=== PATIENT | male | born 2000 | race Caucasian/White ===

== ENCOUNTER 2025-11-19 16:12 | Observation (INO) ==
--- NOTE | 2025-11-19 16:19 | Emergency Department Note ---
History of Present Illness General Chief complaint: Abdominal Pain Stated complaint: ABD PAIN, VOMITING Time Seen by Provider: 11/19/25 16:17 History of Present Illness This is a 25-year-old male that presents to the emergency department via private vehicle with complaints of "abdominal pain, vomiting". Patient family notes that there has been vomiting x 3 days with abdominal pain mostly in the right side. Reportedly there has been decreased urine output and some constipation. Since yesterday about 10-15 episodes of emesis. Patient unable to tolerate any oral food or fluids. Patient felt little bit better today but then pain worsened in the right lower quadrant. Current pain 07/11. No trauma. No injury. Patient notes he is otherwise healthy and denies any pertinent past medical history, surgeries or allergies. No chest pain or shortness of breath. Home Medications Medication Instructions Recorded Confirmed Type No Known Home Medications 11/19/25 11/19/25 History Allergies Allergy/AdvReac Type Severity Reaction Status Date / Time No Known Allergies Allergy Unknown Verified 02/05/04 10:21 Past Med/Surg History Problem List (Updated 11/19/25 @ 20:42 by Patrice East PA-C) Acute appendicitis (Acute) Emesis (Acute) Right sided abdominal pain (Acute) Social History Smoking Status: Never smoker Preferred Language: Bruneian Feels Safe at Home: Yes Review of Systems A total of 10 systems reviewed and were otherwise negative Physical Exam Vital Signs Vital Signs - 24 hr 11/19/25 16:15 11/19/25 19:18 11/19/25 21:54 Temperature 36.8 C Temperature Source Temporal Artery Scan Pulse Rate 83 70 Pulse Rate [Finger] 89 Respiratory Rate 18 18 Respiratory Effort / Characteristics Non-Labored Spontaneous Non-Labored Spontaneous Respiratory Depth Normal Normal Respiratory Pattern Regular Blood Pressure 122/91 Blood Pressure [Right Arm] 114/69 Blood Pressure Mean 101 Blood Pressure Mean [Right Arm] 84 Pulse Oximetry 96 97 Oxygen Delivery Method Room Air Room Air Sepsis Recent Fever Within 48 Hours No Sepsis New/Unexplained Change in Mental Status No Sepsis Action Taken by Nursing No Action Required 11/19/25 22:29 Temperature Temperature Source Pulse Rate Pulse Rate [Finger] Respiratory Rate Respiratory Effort / Characteristics Respiratory Depth Respiratory Pattern Blood Pressure Blood Pressure [Right Arm] Blood Pressure Mean Blood Pressure Mean [Right Arm] Pulse Oximetry Oxygen Delivery Method Room Air Sepsis Recent Fever Within 48 Hours Sepsis New/Unexplained Change in Mental Status Sepsis Action Taken by Nursing VITAL SIGNS - Vital signs and nursing notes were reviewed. Stable and afebrile. GENERAL -25-year-old male appearing his stated age who is in no acute distress. Communicates well with provider and answers questions appropriately. SKIN - Without rashes. No meningeal or petechial rash. HEAD - NC/AT. EYES - PERRL with EOMI bilaterally. Sclera anicteric. LUNGS - Chest wall symmetric without accessory muscle use, intercostals retractions, or central cyanosis. Normal vesicular breath sounds CTA B/L. No wheezes, rales, or rhonchi appreciated. CARDIAC - RRR ABDOMEN - Abdominal contour normal without pulsations or visible masses. BS normoactive all four quadrants. RLQ ttp noted. No palpable masses, hepatosplenomegaly, or ascites noted. EXTREMITIES - No clubbing or peripheral cyanosis. No pretibial edema present. +5/5 strength noted in UE/LE bilaterally. NEUROLOGIC - Cranial nerves II through XII grossly intact. PSYCH -alert, oriented and pleasant on exam Course Administered Medications Discontinued Medications Sodium Chloride (Nss) 1,000 mls @ 500 mls/hr IV .Q2H ONE Stop: 11/19/25 18:23 Last Infusion: 11/19/25 18:50 Dose: Infused Documented By: Admin: 11/19/25 16:35 Dose: 500 mls/hr Documented By: SHY Piperacillin Sod/Tazobactam Sod (Zosyn) 4.5 gm in 100 mls @ 200 mls/hr IV NOW ONE; Protocol Stop: 11/19/25 21:02 Last Infusion: 11/19/25 21:20 Dose: Infused Documented By: Admin: 11/19/25 20:50 Dose: 200 mls/hr Documented By: ELIZABETH Ioversol (Optiray 320 100ml) 93 ml IV ONCE ONE Stop: 11/19/25 19:03 Last Admin: 11/19/25 19:02 Dose: 93 ml Documented By: SIL Ketorolac Tromethamine (Ketorolac Tromethamine 15 Mg/Ml Vial) 10 mg IV NOW ONE Stop: 11/19/25 16:25 Last Admin: 11/19/25 16:35 Dose: 10 mg Documented By: SHY Morphine Sulfate (Morphine Sulfate 2 Mg/Ml Carp) 2 mg IV NOW STA Stop: 11/19/25 16:25 Last Admin: 11/19/25 16:35 Dose: 2 mg Documented By: SHY Ondansetron HCl (Ondansetron Inj 2 Mg/Ml 2 Ml Vial) 4 mg IV NOW STA Stop: 11/19/25 16:25 Last Admin: 11/19/25 16:35 Dose: 4 mg Documented By: SHY Medical Decision Making Laboratory Data 11/19/25 16:42 11/19/25 16:42 Lab Results 11/19/25 11/19/25 Range/Units 16:42 Unknown WBC 13.42 H (4.8-10.8) K/ul RBC 5.15 (4.70-6.10) M/uL Hgb 15.2 (14.0-18.0) g/dL Hct 42.5 (42.0-52.0) % MCV 82.5 (80.0-100.0) fL MCH 29.5 (25.0-34.0) pg MCHC 35.8 (32.0-36.0) g/dL RDW Std Deviation 38.7 (36.4-46.3) fL RDW Coeff of Joss 12.9 (11.5-14.5) % Plt Count 222 (130-400) K/uL MPV 10.9 (9.4-12.4) fL Immature Gran % (Auto) 0.4 % Neut % (Auto) 83.8 % Lymph % (Auto) 8.5 % [place] % (Auto) 7.0 % Eos % (Auto) 0.2 % Baso % (Auto) 0.1 % Neut # (Auto) 11.23 H (1.40-6.50) K/uL Lymph # (Auto) 1.14 L (1.20-3.40) K/uL [place] # (Auto) 0.94 H (0.11-0.59) K/uL Eos # (Auto) 0.03 (0.00-0.50) K/uL Baso # (Auto) 0.02 (0.00-0.20) K/uL Immature Gran # (Auto) 0.06 (0.01-0.20) K/uL Sodium 138 (136-145) mmol/L Potassium 3.3 L (3.5-5.1) mmol/L Chloride 99 (98-107) mmol/L Carbon Dioxide 30 (21-32) mmol/L Anion Gap 9 (3-11) BUN 11 (6-23) mg/dl Creatinine 0.94 (0.6-1.4) mg/dl Est Cr Clr Drug Dosing Not Reportable eGFR 116.82 BUN/Creatinine Ratio 11.7 (10-20) Glucose 136 H (70-99(Fasting)) mg/dl Calcium 10.0 (8.6-10.3) mg/dl Total Bilirubin 0.7 (0.2-1.0) mg/dl AST 15 (13-39) U/L ALT 11 (7-52) U/L Alkaline Phosphatase 58 (34-104) U/L Total Protein 7.8 (6.0-8.3) gm/dl Albumin 4.9 (3.4-5.0) gm/dl Globulin 2.9 (2.5-4.0) gm/dl Albumin/Globulin Ratio 1.7 (0.9-2) Lipase 6 L (11-82) U/L Urine Color Yellow Urine Appearance Clear (Clear) Urine pH 6.0 (4.5-7.5) Ur Specific [place] 1.009 (1.000-1.030) Urine Protein Negative (Negative) Urine Glucose (UA) Trace H (Negative) Urine Ketones Trace H (Negative) Urine Blood Negative (Negative) Urine Nitrite Negative (Negative) Urine Bilirubin Negative (Negative) Urine Urobilinogen Negative (Negative) Ur Leukocyte Esterase Negative (Negative) Urine Comment Imaging Data Radiologist's Impression: Abdomen/Pelvis CT 11/19/25 16:24 CR Exam(s): CT ABDOMEN + PELVIS With Contrast IV Amt: 93 ml optiray 320 EXAM: CT Abdomen and Pelvis With Intravenous Contrast CLINICAL HISTORY: Reason for exam: R sided abd pain, vomiting. TECHNIQUE: Axial computed tomography images of the abdomen and pelvis with intravenous contrast. CTDI is 7.47 mGy and DLP is 349.35 mGy-cm. Automated exposure control was utilized for the study. A dose lowering technique was utilized adhering to the principles of ALARA. CONTRAST: Patient received 93 ml optiray 320 of IV contrast COMPARISON: None FINDINGS: Lung bases: Unremarkable. No mass. No consolidation. ABDOMEN: Liver: Unremarkable. No mass. Gallbladder and bile ducts: Unremarkable. No calcified stones. No ductal dilation. Pancreas: Unremarkable. No mass. No ductal dilation. Spleen: Unremarkable. No splenomegaly. Adrenals: Unremarkable. No mass. Kidneys and ureters: Unremarkable. No hydronephrosis or obstructing ureteral stone. Stomach and bowel: Fluid and gas filled small bowel loops may represent enteritis in the appropriate clinical setting. No obstruction. PELVIS: Appendix: Mild enlargement and inflammatory change of the appendix measuring 9-10 mm in diameter. Findings are concerning for acute appendicitis. Bladder: Mild prominence of the bladder wall is likely secondary to underdistention. Reproductive: Unremarkable as visualized. ABDOMEN and PELVIS: Intraperitoneal space: Small amount of fluid in the pelvis. No free air. Bones/joints: Probable small bone islands in the pelvic bones. No acute fracture. No dislocation. Soft tissues: Unremarkable. Vasculature: Unremarkable. No abdominal aortic aneurysm. Lymph nodes: Unremarkable. No enlarged lymph nodes. IMPRESSION: 1. Mild enlargement and inflammatory change of the appendix measuring 9- 10 mm in diameter. Findings are concerning for acute appendicitis. 2. Fluid and gas filled small bowel loops may represent enteritis in the appropriate clinical setting. 3. Small amount of fluid in the pelvis. Communications: Call Doctor Appendicitis Electronically signed by: Ashley Roberson M.D. 11/19/25 20:26 PM MDM Narrative Patient was seen and evaluated as above in room D06. Review was performed of nursing notes and vital signs. After obtaining a thorough history and physical examination the above work up was performed. Patient presents to us today for evaluation of right sided abdominal pain with vomiting x 3 days. He is tender in the right lower quadrant on assessment. Vital signs are stable. Options of care were discussed with the patient. IV access was established. Labs were drawn. A CT scan of the abdomen/pelvis with IV and oral contrast was ordered. While here he was medicated with IV Toradol for pain, IV morphine for pain, Zofran for nausea and fluids to rehydrate volume loss through vomiting. There is leukocytosis 13.42. No anemia. There is mild hypokalemia 3.3. There is no evidence of kidney or liver failure. There is hyperglycemia 136. There is no elevation of lipase. The patient was able to tolerate the oral prep for CT without issue. There was no vomiting. CT scan reveals acute appendicitis. I ordered IV antibiotics. received a phone call from the radiologist interpreting the CT scan abdomen/pelvis alerting me of the concern for acute appendicitis. 2035: I spoke with LIYAH Alarcon from general surgery. Plan at this time is observation with likely operative intervention tomorrow. She will come to evaluate the patient. Please refer to further documentation regarding his stay. GCS: 15 In the evaluation and treatment of this patient the following differential diagnoses were entertained: Acute appendicitis, acute cholecystitis, UTI, pyelonephritis, strain, sprain, bowel obstruction, among others. Impression & Plan Acute appendicitis, Right sided abdominal pain, Emesis Discharge Plan Visit Data Chief Complaint: Abdominal Pain Stated Complaint: ABD PAIN, VOMITING ED Provider: Shravan Child ED Midlevel Provider: Patrice East Discharge Problem: Acute appendicitis, Right sided abdominal pain, Emesis Patient Disposition: Admitted As Inpatient Condition: Good Discharge Instructions Interventions: ED Discharge Assessment Last Done: 11/19/25 22:29 Forms Stand Alone Forms: My [facility] [employer] Prescriptions Prescriptions: No Action No Known Home Medications Referrals Referrals: PCP,NO [Primary Care Provider] -
[2025-11-19] MEDS: MoRPHine SULFATE 2 MG/ML CARP IV STA (16:35)
[2025-11-19] MEDS: SODIUM CHLORIDE 0.9% 1,000 ML IV ONE (16:35)
[2025-11-19] MEDS: KETOROLAC TROMETHAMINE 15 MG/ML VIAL IV ONE (16:35)
[2025-11-19] MEDS: ONDANSETRON INJ 2 MG/ML 2 ML VIAL IV STA (16:35)
[2025-11-19 17:06] LABS: Hematocrit (blood only) 42.5 % (42.0-52.0); Hemoglobin 15.2 g/dL (14.0-18.0); Immature Granulocytes # (auto) 0.06 K/uL (0.01-0.20); Immature Granulocytes % (auto) 0.4 %; Mean Corpuscular Hemoglobin 29.5 pg (25.0-34.0); Mean Corpuscular Volume 82.5 fL (80.0-100.0); Platelet Count 222 K/uL (130-400); RDW Standard Deviation 38.7 fL (36.4-46.3); Red Blood Count 5.15 M/uL (4.70-6.10); White Blood Count 13.42 K/ul (4.8-10.8)
[2025-11-19 17:24] LABS: Alanine Aminotransferase 11 U/L (7-52); Albumin Globulin Ratio 1.7 (0.9-2); Albumin Level 4.9 gm/dl (3.4-5.0); Alkaline Phosphatase 58 U/L (34-104); Anion Gap 9 (3-11); Bilirubin,Total 0.7 mg/dl (0.2-1.0); Blood Urea Nitrogen 11 mg/dl (6-23); Calcium 10.0 mg/dl (8.6-10.3); Carbon Dioxide 30 mmol/L (21-32); Chloride 99 mmol/L (98-107); Globulin 2.9 gm/dl (2.5-4.0); Glucose 136 mg/dl (70-99(Fasting)); Lipase 6 U/L (11-82); Potassium 3.3 mmol/L (3.5-5.1); Sodium 138 mmol/L (136-145); Total Protein 7.8 gm/dl (6.0-8.3)
[2025-11-19] MEDS: OPTIRAY 320 100ml IV ONE (19:02)
[2025-11-19 19:29] LABS: Appearance Urine Clear (Clear); Glucose Urine UA Trace (Negative)
--- NOTE | 2025-11-19 20:27 | CT Scan Report ---
Exam(s): CT ABDOMEN + PELVIS With Contrast IV Amt: 93 ml optiray 320 EXAM: CT Abdomen and Pelvis With Intravenous Contrast CLINICAL HISTORY: Reason for exam: R sided abd pain, vomiting. TECHNIQUE: Axial computed tomography images of the abdomen and pelvis with intravenous contrast. CTDI is 7.47 mGy and DLP is 349.35 mGy-cm. Automated exposure control was utilized for the study. A dose lowering technique was utilized adhering to the principles of ALARA. CONTRAST: Patient received 93 ml optiray 320 of IV contrast COMPARISON: None FINDINGS: Lung bases: Unremarkable. No mass. No consolidation. ABDOMEN: Liver: Unremarkable. No mass. Gallbladder and bile ducts: Unremarkable. No calcified stones. No ductal dilation. Pancreas: Unremarkable. No mass. No ductal dilation. Spleen: Unremarkable. No splenomegaly. Adrenals: Unremarkable. No mass. Kidneys and ureters: Unremarkable. No hydronephrosis or obstructing ureteral stone. Stomach and bowel: Fluid and gas filled small bowel loops may represent enteritis in the appropriate clinical setting. No obstruction. PELVIS: Appendix: Mild enlargement and inflammatory change of the appendix measuring 9-10 mm in diameter. Findings are concerning for acute appendicitis. Bladder: Mild prominence of the bladder wall is likely secondary to underdistention. Reproductive: Unremarkable as visualized. ABDOMEN and PELVIS: Intraperitoneal space: Small amount of fluid in the pelvis. No free air. Bones/joints: Probable small bone islands in the pelvic bones. No acute fracture. No dislocation. Soft tissues: Unremarkable. Vasculature: Unremarkable. No abdominal aortic aneurysm. Lymph nodes: Unremarkable. No enlarged lymph nodes. IMPRESSION: 1. Mild enlargement and inflammatory change of the appendix measuring 9- 10 mm in diameter. Findings are concerning for acute appendicitis. 2. Fluid and gas filled small bowel loops may represent enteritis in the appropriate clinical setting. 3. Small amount of fluid in the pelvis. Communications: Call Doctor Appendicitis Electronically signed by: Ashley Roberson M.D. 11/19/25 20:26 PM
[2025-11-19] MEDS: PIPERACILLIN/TAZOBACTAM 4.5 GM/100 ML BAG IV ONE (20:50)
--- NOTE | 2025-11-19 21:17 | History & Physical Report ---
Date of Service November 19, 2025 Assessment & Plan (1) Acute appendicitis: Plan: Patient is a 25-year-old male who presented to the emergency department with complaints of nausea and vomiting for the last 3 days and acute onset of right lower quadrant abdominal pain that started yesterday. Upon workup he was found to have a leukocytosis of 13.[address] findings concerning for acute appendicitis. Patient was seen and evaluated this evening at bedside, he is resting comfortably in bed, vital signs are stable, and he is nontoxic- appearing. Patient does have clinical exam findings consistent with acute appendicitis. At this time patient will be admitted under observation to the general surgery service. -Patient may have sips and chips for now, n.p.o. at midnight, and IV fluid hydration -IV Zosyn has been initiated in the emergency department, continue antibiotic coverage -Pain control and antiemetics as needed - Discussed treatment options with the patient and tentatively planning for appendectomy tomorrow morning with Dr. Kendrick. History of Present Illness Chief Complaint: Abdominal pain Primary Care Provider: NO PCP The patient is a 25-year-old male presented to the emergency department with complaints of abdominal pain, nausea and vomiting. The patient states that over the last 3 days he has been vomiting and originally thought it was due to a GI bug, however yesterday he started with abdominal pain in his mid abdomen that has progressed into his right lower quadrant. Patient states that the pain has not gotten any better and he continued with episodes of vomiting today which prompted him to come to the emergency department for further evaluation. Upon workup the patient was found to have a leukocytosis of 13.[address] imaging concerning for acute appendicitis. At that time general surgery was consulted for further evaluation. Patient was seen and evaluated this evening in the emergency department, he is resting comfortably in bed, vital signs are stable, and he is nontoxic- appearing. Patient states that his nausea and vomiting has gotten better since receiving medication in the emergency department. However, he does have tenderness to palpation on exam in the right lower quadrant consistent with acute appendicitis. Patient denies any past medical or surgical history. Allergies Allergy/AdvReac Type Severity Reaction Status Date / Time No Known Allergies Allergy Unknown Verified 02/05/04 10:21 Home Medications Medication Instructions Recorded Confirmed Type No Known Home Medications 11/19/25 11/19/25 History Past Med/Surg History Problem List (Updated 11/19/25 @ 20:42 by Patrice East PA-C) Acute appendicitis (Acute) Emesis (Acute) Right sided abdominal pain (Acute) Social History Smoking Status: Never smoker Preferred Language: Russian Feels Safe at Home: Yes Review of Systems Constitutional: no fever, no chills and no weakness Respiratory: no cough, no chest congestion and no dyspnea Cardiovascular: no chest pain, no palpitations and no syncope Gastrointestinal: + abdominal pain, + nausea and + vomitin g Genitourinary: no difficulty urinating or no hematuria Physical Exam Constitutional: WD/WN, vitals as above Respiratory: normal respiratory effort, lungs clear to auscultation Cardiovascular: RRR, no murmur, no edema Gastrointestinal (Abdomen): Abdomen soft, nondistended, +TTP in the RLQ with + McBurney's point. Skin: no rashes, warm and dry Results & Data Results & Data Vital Signs (Past 12 Hours) Vital Signs Temp Pulse Pulse Resp BP BP Pulse Ox 11/19/25 19:18 89 18 114/69 97 11/19/25 16:15 36.8 C 83 18 122/91 96 O2 Del Method 11/19/25 19:18 Room Air 11/19/25 16:15 Room Air Diagnostic Findings Exam(s): CT ABDOMEN + PELVIS With Contrast IV Amt: 93 ml optiray 320 EXAM: CT Abdomen and Pelvis With Intravenous Contrast CLINICAL HISTORY: Reason for exam: R sided abd pain, vomiting. TECHNIQUE: Axial computed tomography images of the abdomen and pelvis with intravenous contrast. CTDI is 7.47 mGy and DLP is 349.35 mGy-cm. Automated exposure control was utilized for the study. A dose lowering technique was utilized adhering to the principles of ALARA. CONTRAST: Patient received 93 ml optiray 320 of IV contrast COMPARISON: None FINDINGS: Lung bases: Unremarkable. No mass. No consolidation. ABDOMEN: Liver: Unremarkable. No mass. Gallbladder and bile ducts: Unremarkable. No calcified stones. No ductal dilation. Pancreas: Unremarkable. No mass. No ductal dilation. Spleen: Unremarkable. No splenomegaly. Adrenals: Unremarkable. No mass. Kidneys and ureters: Unremarkable. No hydronephrosis or obstructing ureteral stone. Stomach and bowel: Fluid and gas filled small bowel loops may represent enteritis in the appropriate clinical setting. No obstruction. PELVIS: Appendix: Mild enlargement and inflammatory change of the appendix measuring 9-10 mm in diameter. Findings are concerning for acute appendicitis. Bladder: Mild prominence of the bladder wall is likely secondary to underdistention. Reproductive: Unremarkable as visualized. ABDOMEN and PELVIS: Intraperitoneal space: Small amount of fluid in the pelvis. No free air. Bones/joints: Probable small bone islands in the pelvic bones. No acute fracture. No dislocation. Soft tissues: Unremarkable. Vasculature: Unremarkable. No abdominal aortic aneurysm. Lymph nodes: Unremarkable. No enlarged lymph nodes. IMPRESSION: 1. Mild enlargement and inflammatory change of the appendix measuring 9- 10 mm in diameter. Findings are concerning for acute appendicitis. 2. Fluid and gas filled small bowel loops may represent enteritis in the appropriate clinical setting. 3. Small amount of fluid in the pelvis. Code Status & VTE Plan VTE Prophylaxis Plan VTE Prophylaxis will be ordered: Yes PG Care Time/CCT Total # of Minutes Spent Total Time Spent with Patient: Total time spent is greater than 50% in coordination of care (as documented) at patient's floor/unit and/or counseling patient: [place] [address] INT INP/OBS CARE 1/40MIN Patient Type New History Problem Focused Exam Problem Focused Medical Decision Making Straight Forward Diagnoses Acute appendicitis K35.80
[2025-11-19] MEDS ORDERED: HYDROmorphone INJ 0.5 MG/0.5 ML SYR IV PRN ×2 (22:42)
[2025-11-19] MEDS ORDERED: ONDANSETRON INJ 2 MG/ML 2 ML VIAL IV PRN (22:42)
[2025-11-19] MEDS: ACETAMINOPHEN 1,000 MG/100 ML VIAL IV SCH (23:03)
[2025-11-19] MEDS: SODIUM CHLORIDE 0.9% 1,000 ML IV SCH (23:03)
[2025-11-19] MEDS ORDERED: INFLUENZA VACC TS2025-26(6m+)/PF (IIV3) 0.5mL Syr IM ONE (23:39)
[2025-11-20] MEDS: PIPERACILLIN/TAZOBACTAM 4.5 GM/100 ML BAG IV SCH (02:30)
[2025-11-20 06:09] LABS: Hematocrit (blood only) 35.7 % (42.0-52.0); Hemoglobin 12.7 g/dL (14.0-18.0); Immature Granulocytes # (auto) 0.07 K/uL (0.01-0.20); Immature Granulocytes % (auto) 0.5 %; Mean Corpuscular Hemoglobin 29.8 pg (25.0-34.0); Mean Corpuscular Volume 83.8 fL (80.0-100.0); Platelet Count 179 K/uL (130-400); RDW Standard Deviation 39.5 fL (36.4-46.3); Red Blood Count 4.26 M/uL (4.70-6.10); White Blood Count 13.11 K/ul (4.8-10.8)
[2025-11-20 06:26] LABS: Anion Gap 6.0 (3-11); Blood Urea Nitrogen 7.0 mg/dl (6-23); Calcium 9.0 mg/dl (8.6-10.3); Carbon Dioxide 30.0 mmol/L (21-32); Chloride 103.0 mmol/L (98-107); Creatinine Clr Calc Pharmacy 91.7 ml/min; Glucose 108.0 mg/dl (70-99(Fasting)); Potassium 3.6 mmol/L (3.5-5.1); Sodium 139.0 mmol/L (136-145)
[2025-11-20] MEDS ORDERED: DEXAMETHASONE SOD INJ 4 MG/ML VIAL ONE (06:55)
[2025-11-20] MEDS ORDERED: PROPOFOL IV EMULSION 10 MG/ML 20 ML VIAL IV ONE (06:55)
[2025-11-20] MEDS ORDERED: LIDOCAINE 2% 2 ML VIAL/AMP(20MG/ML) INFIL ONE (06:55)
[2025-11-20] MEDS ORDERED: ROCURONIUM BROMIDE 10 MG/ML 5 ML VIAL IV ONE (06:55)
[2025-11-20] MEDS ORDERED: MIDAZOLAM HCL 1 MG/ML 2ML VIAL ONE (06:55)
[2025-11-20] MEDS ORDERED: ONDANSETRON INJ 2 MG/ML 2 ML VIAL ONE (06:55)
--- NOTE | 2025-11-20 08:11 | Anesthesiology Consultation ---
Date of Service November 20, 2025 Assessment & Plan (1) Encounter for pre-operative examination: Chart Review Chart Review: Acceptable Risk for Surgery History Surgery Operation Date: 11/20/25 08:30 Proposed Procedures p Laparoscopic Appendectomy - Abhijit Kendrick DO Height/Weight Height: 5 ft 10 in Weight: 53.6 kg Allergies Allergy/AdvReac Type Severity Reaction Status Date / Time No Known Allergies Allergy Unknown Verified 02/05/04 10:21 Medications Home Medications Medication Instructions Recorded Confirmed Last Taken No Known Home Medications 11/19/25 11/19/25 Unknown Active Medications Generic Name Dose Route Start Last Admin Trade Name Freq PRN Reason Stop Dose Admin Piperacillin Sod/Tazobactam Sod 4.5 gm in 100 mls @ 25 mls/hr 11/20/25 02:00 11/20/25 06:34 Zosyn IV 11/24/25 01:59 Infused Q8H YANIRA Infusion Protocol Sodium Chloride 1,000 mls @ 75 mls/hr 11/19/25 22:42 11/19/25 23:03 Nss IV 11/22/25 22:41 75 mls/hr .[id number] YANIRA Administration Acetaminophen 1,000 mg in 100 mls @ 400 mls/hr 11/19/25 23:00 11/20/25 07:16 Ofirmev IV 11/22/25 22:59 Infused Q8H YANIRA Infusion NPO Date Last Intake of Fluids: 11/19/25 Time Last Intake of Fluids: 23:00 Date Last Intake of Solids: 11/19/25 Time Last Intake of Solids: 11:00 Past Medical History Medical History (Updated 11/20/25 @ 08:11 by Ran Tao MD) No pertinent past medical history Past Surgical History Surgical History (Updated 11/20/25 @ 08:11 by Ran Tao MD) Hx of wisdom tooth extraction Social History Smoking Status: Never smoker Do You Dip or Chew Tobacco: No Hx Alcohol Use: Yes Alcohol type: hard liquor alcohol intake frequency: holidays/special occasions only Hx Substance Use: Yes substance use type: former substance user and marijuana Last Used Substance Other:: A week ago Physical Exam Vital Signs Last Vital Signs Temp 37.5 C 11/20/25 07:46 Pulse 76 11/20/25 07:46 Resp 16 11/20/25 07:46 BP 106/71 11/20/25 07:46 Pulse Ox 98 11/20/25 07:46 O2 Del Method Room Air 11/20/25 07:46 Testing Laboratory Results 11/20/25 05:28 11/20/25 05:28 Urine Color Yellow 11/19/25 Unknown Urine Appearance Clear (Clear) 11/19/25 Unknown Urine pH 6.0 (4.5-7.5) 11/19/25 Unknown Ur Specific [place] 1.009 (1.000-1.030) 11/19/25 Unknown Urine Protein Negative (Negative) 11/19/25 Unknown Urine Glucose (UA) Trace (Negative) H 11/19/25 Unknown Urine Ketones Trace (Negative) H 11/19/25 Unknown Urine Nitrite Negative (Negative) 11/19/25 Unknown Ur Leukocyte Esterase Negative (Negative) 11/19/25 Unknown
[2025-11-20] MEDS ORDERED: KETOROLAC 30 MG/ML VIAL IV PRN (08:12)
[2025-11-20] MEDS ORDERED: PROMETHAZINE HCL 6.25 MG in SODIUM CHLORIDE 0.9% 50 ML IV PRN (08:12)
[2025-11-20] MEDS ORDERED: ATROPINE SULFATE 0.1 MG/ML 10ML SYR IV PRN (08:12)
--- NOTE | 2025-11-20 08:17 | Surgery Progress Note ---
Date of Service November 20, 2025 Assessment & Plan (1) Acute appendicitis: Plan: His CT images and results were personally viewed and interpreted by myself He does have a dilated appendix with some stranding consistent with acute appendicitis Will plan on a laparoscopic appendectomy, possible open Consent was obtained, risks discussed including bleeding, infection, abscess Admission and Anticipated Discharge Date Admission Date: November 19, 2025 Subjective Patient seen and examined. Still with some abdominal pain. Afebrile. No nausea or vomiting. Review of Systems Constitutional: no fever and no chills Respiratory: no cough and no dyspnea Cardiovascular: no chest pain and no dyspnea on exertion Gastrointestinal: + abdominal pain; no nausea and no vomit ing Physical Exam Constitutional: WD/WN, vitals as above Eyes: PERRL, conjunctivae normal, anicteric sclerae Respiratory: normal respiratory effort, lungs clear to auscultation Cardiovascular: RRR, no murmur, no edema Gastrointestinal (Abdomen): Inspection/Auscultation: abdomen normal to inspection; abdomen not distended Percussion/Palpation: + abdomen tender (Right lower quadrant) and abdomen soft; no guarding Skin: no rashes, warm and dry Psychiatric: A+Ox3, euthymic affect Results & Data Vital Signs (Past 12 Hours) Vital Signs Temp Pulse Pulse Resp BP Pulse Ox O2 Del Method 11/20/25 07:46 37.5 C 76 16 106/71 98 Room Air 11/19/25 22:50 Room Air 11/19/25 22:48 36.7 C 74 18 109/70 98 Room Air 11/19/25 22:29 Room Air 11/19/25 21:54 70 PG Care Time/CCT Total # of Minutes Spent Total Time Spent with Patient: Total time spent is greater than 50% in coordination of care (as documented) at patient's floor/unit and/or counseling patient: Coding Level of Care Code 89231 SUB INP/OBS CARE 2/35MIN Diagnoses Acute appendicitis K35.80
[2025-11-20] MEDS: BUPIVACAINE/EPINEPHRINE 0.25% 1:200,000 30 ML VIAL ONE (09:12)
[2025-11-20] MEDS ORDERED: SUGAMMADEX SODIUM 200 MG/2 ML VIAL IV ONE (09:13)
[2025-11-20] MEDS ORDERED: KETOROLAC 30 MG/ML VIAL ONE (09:15)
--- NOTE | 2025-11-20 09:17 | Post Operative Brief Note ---
PG Immediate Post Op with CF Date of Surgery November 20, 2025 Pre & Post Diagnosis Operation Date: 11/20/25 08:30 Pre-Op Diagnosis: Acute appendicitis Post-Op Diagnosis: Acute appendicitis without perforation, with abscess I identified the patient and participated in the time-out.: Yes Procedure Operation Date: 11/20/25 08:30 Actual Procedures p Laparoscopic Appendectomy(Not Applicable) - Abhijit Kendrick DO Surgeon Abhijit Kendrick DO Pilot Boat Operator Tennille Paz PA-C Estimated Blood Loss 5 Findings See Below Inflamed dilated appendix without perforation with mesenteric abscess Specimens Specimen Description: A) Appendix Drains Carlin Catheter Anesthesia Type General Complications none Disposition Disposition: Recovery Room
--- NOTE | 2025-11-20 09:19 | Operative Report ---
PG Post Operative Report Pre & Post Diagnosis Operation Date: 11/20/25 08:30 Pre-Op Diagnosis: Acute appendicitis Post-Op Diagnosis: Acute appendicitis without perforation, with abscess I identified the patient and participated in the time-out.: Yes Procedure Operation Date: 11/20/25 08:30 Actual Procedures p Laparoscopic Appendectomy(Not Applicable) - Abhijit Kendrick DO Surgeon Abhijit Kendrick DO Motorsports Technician Tennille Paz PA-C Estimated Blood Loss 5 Findings See Below Inflamed dilated appendix without perforation with mesenteric abscess Specimens Appendix to pathology Drains None Anesthesia Type General Complications none Disposition Disposition: Recovery Room Indications 25-year-old male with acute appendicitis Description of Procedure The patient was brought to the OR and placed in the supine position and SCD's placed. At this time he underwent general endotracheal anesthesia without incid ent. At this time a Carlin catheter was placed under sterile conditions. His abdomen was prepped and draped in the usual sterile fashion. He was given appropriate pre-operative antibiotics. A timeout was called, the procedure was verified as Laparoscopic appendectomy, possible open. Surgical, anesthesia and nursing teams agreed and the procedure was begun. After injection of 0.25% Marcaine with epinephrine, a supraumbilical incision was made using a #11 blade scalpel and carried down to the fascia with a hemostat. The abdomen was then elevated with towel clamps and entered using the Veress needle confirming position using the saline drop test. Pneumoperitoneum was established and 5mm trocar was placed. Laparoscope was introduced. No injury was seen from our entrance to the abdomen. At this time a 5mm suprapubic port and 12mm LLQ port were placed under direct visualization. The patient was placed in Trendelenburg and rotated to the left. At this time the appendix was visualized and the tip was freed and elevated toward the abdominal wall. The appendix appeared inflamed, dilated and edematous. A window was created in the mesoappendix at the base of the appendix. A 45mm purple load stapler was then fired across the base of the appendix which appeared healthy. There was an appendiceal abscess and small amount of purulent fluid encountered within the mesoappendix. The mesoappendix was then taken using Harmonic device. The appendix was then placed in an Endocatch bag and removed through the LLQ port site. Staple line was inspected and was intact. Hemostasis was complete. A small amount of purulent fluid was suctioned out of the RLQ and pelvis. At this point the omentum was placed over the staple line. The 12 mm port was then closed at the fascial level using a 0 Vicryl suture using the suture passer. All ports were removed under direct visualization and no bleeding was noted. The abdomen was desufflated and the skin was closed using 4-0 Monocryl in a subcuticular fashion. Sterile dressings were applied. Carlin catheter was removed. The patient was then awakened from anesthesia having remained stable throughout the entire case and transported to PACU. All needle and sponge counts were correct x 2. The physician lead assistant manager was present scrubbed for the entire case. She was essential in positioning, prepping and draping the patient, driving the laparoscope, closure of the incisions and placement of dressings I attest to the content of the Intraoperative Record and any orders documented therein. Any exceptions are noted below.
--- NOTE | 2025-11-20 10:01 | Anesthesiology Progress Note ---
Date of Service November 20, 2025 Anesthesia Post Procedure Vital Signs Vital Signs: Temp Pulse Pulse Pulse Resp BP BP 11/20/25 10:00 36.8 C 82 13 128/76 11/20/25 09:50 83 16 126/72 11/20/25 09:40 94 H 16 120/71 11/20/25 09:34 36.5 C 107 H 12 127/61 11/20/25 07:46 37.5 C 76 16 106/71 11/19/25 22:50 11/19/25 22:48 36.7 C 74 18 109/70 11/19/25 22:29 11/19/25 21:54 70 11/19/25 19:18 89 18 114/69 11/19/25 16:15 36.8 C 83 18 122/91 Pulse Ox O2 Del Method O2 Flow Rate 11/20/25 10:00 99 Room Air 11/20/25 09:50 96 Room Air 11/20/25 09:40 100 Oxymask 2 11/20/25 09:34 97 Oxymask 6 11/20/25 07:46 98 Room Air 11/19/25 22:50 Room Air 11/19/25 22:48 98 Room Air 11/19/25 22:29 Room Air 11/19/25 21:54 11/19/25 19:18 97 Room Air 11/19/25 16:15 96 Room Air Pain Intensity Abdomen: Pain Intensity: 7 Transfer of Care Handoff Completed per policy Notes Mental Status: alert / awake / arousable Patient Amnestic to Procedure: Yes Nausea / Vomiting: adequately controlled Pain: adequately controlled Airway Patency, RR, SpO2: stable & adequate BP & HR: stable & adequate Hydration State: stable & adequate Anesthetic Complications: no major complications apparent
[2025-11-21 07:57] VITALS: PULSE 71; RESP 14; O2SAT 97
[2025-11-21 08:34] VITALS: TEMP 99.1
[2025-11-21 08:52] LABS: Hematocrit (blood only) 33.7 % (42.0-52.0); Hemoglobin 11.7 g/dL (14.0-18.0); Immature Granulocytes # (auto) 0.05 K/uL (0.01-0.20); Immature Granulocytes % (auto) 0.4 %; Mean Corpuscular Hemoglobin 29.2 pg (25.0-34.0); Mean Corpuscular Volume 84.0 fL (80.0-100.0); Platelet Count 159 K/uL (130-400); RDW Standard Deviation 39.4 fL (36.4-46.3); Red Blood Count 4.01 M/uL (4.70-6.10); White Blood Count 12.03 K/ul (4.8-10.8)
[2025-11-21 09:06] LABS: Anion Gap 7.0 (3-11); Blood Urea Nitrogen 8.0 mg/dl (6-23); Calcium 8.8 mg/dl (8.6-10.3); Carbon Dioxide 28.0 mmol/L (21-32); Chloride 105.0 mmol/L (98-107); Creatinine Clr Calc Pharmacy 106.2 ml/min; Glucose 120.0 mg/dl (70-99(Fasting)); Potassium 3.2 mmol/L (3.5-5.1); Sodium 140.0 mmol/L (136-145)
--- NOTE | 2025-11-21 09:21 | Surgery Progress Note ---
Date of Service November 21, 2025 Assessment & Plan (1) S/P laparoscopic appendectomy: Plan: POD #1- s/p Lap Appendectomy. Huan is feeling well this morning, reports that pain is well-controlled. He has only had clear liquids, so will make sure he has some regular food without issue before discharge. Incision sites are healing well. He feels ready for discharge. Discharge instructions were reviewed. Two prescriptions were sent to his pharmacy- pain medication an Augment (10 day course), which he will begin today. He is aware that he is to follow-up with Dr. Kendrick in 1-2 weeks following surgery. Return precautions reviewed. All questions answered. Pt seen and examined with Dr. Kendrick. Admission and Anticipated Discharge Date Admission Date: November 19, 2025 Subjective Huan is resting in bed, reports that he is feeling better since surgery. He denies any post-op nausea. Reports that he has only had clear liquids since surgery, but does feel hungry. Review of Systems Constitutional: as per Subjective / HPI; no fever and no chills Respiratory: no cough, no chest congestion, no dyspnea and no dyspnea on exertion Cardiovascular: no chest pain, no chest pain at rest, no chest pain with activity, no radiating jaw, neck or arm pain, no lightheadedness and no calf pain Gastrointestinal: no nausea and no vomiting Physical Exam Constitutional: WD/WN, vitals as above Respiratory: normal respiratory effort; no respiratory distress and no labored breathing Gastrointestinal (Abdomen): Surgical incisions are clean, dry, intact and well-approximated with Dermabond in place. No signs of infection. He is tender as expected at incision sites. Results & Data Vital Signs (Past 12 Hours) Vital Signs Temp Pulse Pulse Resp BP Pulse Ox O2 Del Method 11/21/25 08:34 37.3 C 11/21/25 07:56 37.6 C H 71 14 121/75 97 Room Air 11/21/25 04:22 37.3 C 68 18 128/72 98 Room Air 11/20/25 23:13 37.3 C 63 16 122/71 98 Room Air PG Care Time/CCT Total # of Minutes Spent Total Time Spent with Patient: Total time spent is greater than 50% in coordination of care (as documented) at patient's floor/unit and/or counseling patient: Coding Level of Care Code 25933 Post Operative Follow-Up Diagnoses S/P laparoscopic appendectomy Z90.49
[2025-11-21 12:39] VITALS: BP 119/69
--- NOTE | 2025-11-23 09:09 | Discharge Summary ---
Date of Service November 21, 2025 Admission HPI Per Admitting Provider The patient is a 25-year-old male presented to the emergency department with complaints of abdominal pain, nausea and vomiting. The patient states that over the last 3 days he has been vomiting and originally thought it was due to a GI bug, however yesterday he started with abdominal pain in his mid abdomen that has progressed into his right lower quadrant. Patient states that the pain has not gotten any better and he continued with episodes of vomiting today which prompted him to come to the emergency department for further evaluation. Upon workup the patient was found to have a leukocytosis of 13.[address] imaging concerning for acute appendicitis. At that time general surgery was consulted for further evaluation. Patient was seen and evaluated this evening in the emergency department, he is resting comfortably in bed, vital signs are stable, and he is nontoxic- appearing. Patient states that his nausea and vomiting has gotten better since receiving medication in the emergency department. However, he does have tenderness to palpation on exam in the right lower quadrant consistent with acute appendicitis. Patient denies any past medical or surgical history. Principal Diagnosis acute appendicitis Discharge Exam awake/alert, no distress Constitutional well developed and well nourished; no acute distress Gastrointestinal (Abdomen) Inspection/Auscultation: + abdominal surgical incision (c/d/i with dermabond) Percussion/Palpation: + abdomen tender (expected ruddy incisional discomfort to palpation ) and abdomen soft Discharge Data Allergies Allergy/AdvReac Type Severity Reaction Status Date / Time No Known Allergies Allergy Unknown Verified 02/05/04 10:21 Consultations 11/19/25 20:37 ED Decision to Admit Stat Procedures Performed Operation Date: 11/20/25 08:30 Actual Procedures p Laparoscopic Appendectomy(Not Applicable) - Abhijit Kendrick DO Ordered Studies 11/19/25 16:24 CT abd pelvis oral and IV con Stat Hospital Course (1) Acute appendicitis: This is a 25yM who presented to the [facility] ED on 11/19/25 with abdominal pain. Workup in the ED showed a WBC of 13.[address] a/p concerning for acute appendicitis. The patient was tender to palpation in the RLQ. He was admitted under the surgical service. Patient was made NPO with IVF and IV abx and booked for the OR the following morning. On 11/20 the patient went to the OR with Dr. Kendrick for a laparoscopic appendectomy. The patient tolerated the procedure well, see operative report for full details. Post operatively the patient's diet was advanced, pain managed on prn meds, and incisions clean/dry/intact. On POD#1 the patient was deemed stable for discharge to home. Total Time Total Time Spent Total Time Spent (In Minutes): 10 Discharge Plan Discharge Items Patient Disposition: Home - Self-Care Reason For Visit: ACUTE APPENDICITIS Discharge Diagnosis: laparoscopic appendectomy Condition on Discharge: Good Activity: Per Instructions section Non-emergency contact: Primary Care Provider and Surgeon Call non-emergency contact if: your pain is not controlled, your temperature is above 101.5, your wound has increased redness and your wound has increased drainage Follow-up/Referrals: Abhijit Kendrick, [Physician] - (follow up in 2 weeks for your post-op check up) PCP,NO [Primary Care Provider] - Diet: Regular Addtl Attending Provider Instructions: SPECIAL CARE INSTRUCTIONS: * You have skin glue, called Dermabond, over your incisions. You may shower with this on. Do NOT pick at this as it will start to fall off on its own within the next 7-10 days. * You may shower on 11/21/2025 . NO soaking in bath tubs, hot tubs, or pools for 2 weeks * No lifting greater than 10lbs. No exercise until cleared by surgeon. Light walking is accepted. * No driving while taking narcotic pain medication * No drinking alcohol while taking narcotic pain medication * May use Ibuprofen/Tylenol over the counter for pain as tolerated. Do not exceed 3grams of Tylenol per 24 hours * Expect some swelling and bruising. * Diet *- resume your regular diet CALL YOUR DOCTOR IF: * Temperature above 101 degrees, nausea/vomiting, fever/chills * Pain not relieved by pain medicine ordered * There is increased drainage or redness from any incision * You have any unanswered questions or concerns [phone]. FOLLOW UP VISIT: If not already scheduled, please call the office for a follow-up visit. Office Pending Studies at Discharge: Yes Studies:: surgical pathology Stand-Alone Forms: My [employer], Smoking Cessation Medications and DC Order Prescriptions: New oxycodone 5 mg tablet 5 mg PO Q6H PRN (Reason: pain) Qty: 15 0RF Rx Instructions: Initial therapy post surgery amoxicillin-pot clavulanate 875-125 mg tablet 1 tab PO Q12H 10 Days Qty: 20 0RF Discharge Orders: Discharge Order (Routine); Ordered 11/21/25 Ordered By: Tennille Paz Admission Data Admit Date/Time: 11/19/25 21:17 Attending Provider: Abhijit Kendrick Admit Provider: Abhijit Kendrick Primary Care Provider: PCP,NO Other Providers: Abhijit Kendrick Other Interventions: Discharge Summary Assessment (RN) Last Done: 11/21/25 12:38 Coding Level of Care Code 05053 IN/OBS DISCH 30 MIN/LESS Diagnoses Acute appendicitis K35.80
== END 2025-11-21 13:21 | disposition home or self-care (01) ==
LOC: 3E 16:12 → ED 16:12 → 3E 22:29
DX: K35.210 Acute appendicitis with generalized peritonitis, without perforation, with abscess

== ENCOUNTER 2025-11-23 18:26 | Inpatient (IN) ==
--- NOTE | 2025-11-23 18:39 | Emergency Department Note ---
Impression & Plan SBO (small bowel obstruction), S/P laparoscopic appendectomy, Nausea & vomiting ED Provider Note CHIEF COMPLAINT: Nausea and vomiting HISTORY OF PRESENTING ILLNESS: This 25-year-old male patient presents to the emergency department with his grandfather for nausea and vomiting and decreased appetite. The patient states that anytime he tries to eat he gets very nauseous and starts vomiting. He did have a laparoscopic appendectomy due to acute appendicitis on 11/20/[address] Kendrick. The patient was discharged home on Augmentin and oxycodone. He is not having too much pain, just not really able to eat and still having a lot of nausea and vomiting. He has been having small BMs and passing gas. Has some pain around his incision and in the right lower quadrant with BMs. Has had mild urinary frequency. Denies any fevers. Denies chest pain or SOB. REVIEW OF SYSTEMS: See HPI for pertinent positives and pertinent negatives. ALLERGIES: NKDA MEDICATIONS: None PAST MEDICAL HISTORY: Denies pertinent past medical or pertinent past surgical history other than the recent appendectomy PHYSICAL EXAM: VITALS: Vitals are noted on the nurse's note and reviewed by myself. GENERAL: Non toxic, in no acute distress, non-diaphoretic. SKIN: The patient's incision sites appear to be healing well without signs of infection. Capillary refill <2 sec. EYES: PERRLA. EOMI. Conjunctivae without injection, sclerae without icterus. NOSE: Patent without discharge. MOUTH: Mucous membranes moist. Uvula midline. Airway patent. NECK: Supple without nuchal rigidity. HEART: Regular rate and rhythm without murmurs gallops or rubs. LUNGS: Clear to auscultation bilaterally without wheezes, rales or rhonchi. No retractions or accessory muscle use. ABDOMEN: Positive bowel sounds x 4. Normal tympanic percussion. Soft, tender to palpation maximally in the right lower quadrant, but also around the incision sites. No masses or hepatosplenomegaly. Escalante sign negative. No CVA tenderness. No guarding, rigidity, or rebound tenderness. NEURO: Patient was alert and oriented. No focal neurological deficits. DIFFERENTIAL DIAGNOSIS: Differential diagnosis includes hepatitis, pancreatitis, cholecystitis, cholelithiasis, appendicitis, kidney stone, pyelonephritis, UTI, gastritis, gastroenteritis, mesenteric adenitis, obstruction, constipation, hernia, abdominal abscess, perforation, diverticulitis, IBD, ischemic colitis, abdominal aortic aneurysm, testicular torsion, prostatitis, or others. ED COURSE AND MEDICAL DECISION MAKING: HISTORY FROM INDEPENDENT HISTORIAN: Additional history obtained from the patient's grandfather MEDICATIONS GIVEN: 2 L normal saline solution bolus. Tylenol 1000 mg IV. Zofran 4 mg IV. Pepcid 20 mg IV. Zosyn 4.5 g IV. MONITOR: Continuous alarm security or surveillance monitor: Order was placed for continuous alarm security or surveillance monitor. Patient was placed on the alarm security or surveillance monitor and continuous pulse ox. Patient was noted to be in normal sinus rhythm at an initial rate of 70 bpm per my interpretation. INTERPRETATION OF LABS: I interpreted the labs with full lab results as below in the lab section of this note. Laboratory results pertinent to the emergent complaint are discussed in the MDM section below. The patient was advised to follow up with their PCP and/or specialist(s) for further outpatient monitoring and management of any abnormal results. INTERPRETATION OF IMAGING: Imaging studies were interpreted by myself and read by radiology as per the imaging section of this note. The patient was advised to follow up with their PCP and/or specialist(s) for further outpatient management of any non-emergent abnormal findings. EXTERNAL RECORDS REVIEWED: I reviewed the patient's recent admission for his appendectomy. CONSULTATIONS: Dr. Paz of general surgery. On-call hospitalist. MDM SUMMARY: I examined the patient. The patient had a laparoscopic appendectomy on 11/20/2025 secondary to acute appendicitis. The patient was discharged home on Augmentin and oxycodone. He is having presumed normal postoperative pain, but he is having continued nausea and vomiting and unable to eat anything without feeling significantly full after only a couple bites. The patient is having trouble keeping anything down. He states that he has had a few small bowel movements and feels like he is passing gas. An IV lock was placed and labs were drawn. The patient was given a total of 2 L normal saline solution bolus, IV Tylenol, IV Zofran, and IV Pepcid with improvement of his symptoms. The patient was also given Zosyn 4.5 g IV since he was due for his evening dose of antibiotics and he had an elevated white blood cell count. White blood cell count elevated 15.75. Hemoglobin normal at 15.6. Platelet count normal at 225. CMP without concerning abnormalities. Lipase was normal. Urinalysis with 3+ ketones and trace blood, but no evidence for UTI. CT scan of the abdomen and pelvis with IV contrast shows new postoperative changes consistent with interval appendectomy with reactive wall thickening and hyperemia involving the right lower quadrant loops of small bowel. This ultimately resulted in a mild to moderate small bowel obstruction. No fluid collection identified on this exam. I spoke with Dr. Paz of general surgery who recommended the patient be admitted by medicine for further management. He does not feel that operative management is needed at this time, but will continue to monitor closely. I spoke with the on-call hospitalist who agreed to admit the patient for further evaluation and treatment. Please refer to their dictation for further details. The patient's care was transferred in stable condition. DIAGNOSIS: Small bowel obstruction Nausea and vomiting Recent appendectomy Past Med/Surg History Problem List (Updated 11/24/25 @ 02:48 by Elizabeth Ritchie PA-C) Nausea & vomiting (Acute) SBO (small bowel obstruction) (Acute) S/P laparoscopic appendectomy (Acute) Encounter for pre-operative examination Acute appendicitis (Acute) Emesis (Acute) Right sided abdominal pain (Acute) Medical History No pertinent past medical history Surgical History History of laparoscopic appendectomy (11/21/25) Laparoscopic Appendectomy(Not Applicable) - Abhijit Kendrick, DO Hx of wisdom tooth extraction Social History Smoking Status: Never smoker Second Hand Exposure: Yes; Do You Dip or Chew Tobacco: No; Hx Alcohol Use: Yes Alcohol type: hard liquor Hx Substance Use: Yes (Former) Last Used Substance Other:: A week ago Preferred Language: Palauan Communication Ability: Effective Broadcast Operations Manager Required: No Beliefs That Will Affect Care: None Current Living Situation: Family Current Living Situation Comment: Grandfather and Aunt Other Information That Helps Us Care for You: No Feels Safe at Home: Yes Safety Concerns: Feels Safe At This Time Assistive Devices: Glasses Allergies Allergies Allergy/AdvReac Type Severity Reaction Status Date / Time No Known Allergies Allergy Unknown Verified 02/05/04 10:21 Home Meds Home Medications Medication Instructions Recorded Confirmed amoxicillin 875 mg-potassium 1 tab PO BID 11/23/25 11/23/25 clavulanate 125 mg tablet oxycodone 5 mg tablet 5 mg PO Q6H PRN Pain 11/23/25 11/23/25 Results & Data (ED) Vital Signs Vital Signs - 24 hr 11/23/25 18:27 11/23/25 22:06 Temperature 36 C L Temperature Source Temporal Artery Scan Pulse Rate 118 H Pulse Rate [Finger] 72 Respiratory Rate 18 20 Respiratory Effort / Characteristics Non-Labored Spontaneous Respiratory Depth Normal Respiratory Pattern Regular Blood Pressure 137/90 Blood Pressure [Right Arm] 114/67 Blood Pressure Mean 105 Blood Pressure Mean [Right Arm] 82 Blood Pressure Position Sitting Pulse Oximetry 96 100 Oxygen Delivery Method Room Air Room Air Sepsis Recent Fever Within 48 Hours No Sepsis New/Unexplained Change in Mental Status No Sepsis Action Taken by Nursing No Action Required Laboratory Data 11/23/25 19:00 11/23/25 19:00 Lab Results 11/23/25 11/23/25 Range/Units 19:00 21:12 WBC 15.75 H (4.8-10.8) K/ul RBC 5.36 (4.70-6.10) M/uL Hgb 15.6 (14.0-18.0) g/dL Hct 43.9 (42.0-52.0) % MCV 81.9 (80.0-100.0) fL MCH 29.1 (25.0-34.0) pg MCHC 35.5 (32.0-36.0) g/dL RDW Std Deviation 38.5 (36.4-46.3) fL RDW Coeff of Joss 12.9 (11.5-14.5) % Plt Count 225 (130-400) K/uL MPV 10.0 (9.4-12.4) fL Immature Gran % (Auto) 0.4 % Neut % (Auto) 81.0 % Lymph % (Auto) 5.7 % [place] % (Auto) 12.1 % Eos % (Auto) 0.6 % Baso % (Auto) 0.2 % Neut # (Auto) 12.76 H (1.40-6.50) K/uL Lymph # (Auto) 0.89 L (1.20-3.40) K/uL [place] # (Auto) 1.90 H (0.11-0.59) K/uL Eos # (Auto) 0.10 (0.00-0.50) K/uL Baso # (Auto) 0.03 (0.00-0.20) K/uL Immature Gran # (Auto) 0.07 (0.01-0.20) K/uL Sodium 136 (136-145) mmol/L Potassium 3.3 L (3.5-5.1) mmol/L Chloride 96 L (98-107) mmol/L Carbon Dioxide 29 (21-32) mmol/L Anion Gap 11 (3-11) BUN 11 (6-23) mg/dl Creatinine 0.84 (0.6-1.4) mg/dl Est Cr Clr Drug Dosing 102.5 ml/min eGFR 125.66 BUN/Creatinine Ratio 13.1 (10-20) Glucose 115 H (70-99(Fasting)) mg/dl Calcium 9.7 (8.6-10.3) mg/dl Total Bilirubin 0.8 (0.2-1.0) mg/dl AST 11 L (13-39) U/L ALT 9 (7-52) U/L Alkaline Phosphatase 61 (34-104) U/L Total Protein 7.5 (6.0-8.3) gm/dl Albumin 3.9 (3.4-5.0) gm/dl Globulin 3.6 (2.5-4.0) gm/dl Albumin/Globulin Ratio 1.1 (0.9-2) Lipase 3 L (11-82) U/L Urine Color Yellow Urine Appearance Clear (Clear) Urine pH 6.0 (4.5-7.5) Ur Specific [place] > 1.045 H (1.000-1.030) Urine Protein 1+ H (Negative) Urine Glucose (UA) Negative (Negative) Urine Ketones 3+ H (Negative) Urine Blood Trace H (Negative) Urine Nitrite Negative (Negative) Urine Bilirubin Negative (Negative) Urine Urobilinogen Negative (Negative) Ur Leukocyte Esterase Negative (Negative) Urine WBC (Auto) 0-5 (0-5) /hpf Urine RBC (Auto) 0-2 (0-2) /hpf U Hyaline Cast (Auto) 0-2 (0-2) /lpf U Epithel Cells (Auto) 0-2 (0-2) /hpf Urine Bacteria (Auto) None Seen (None Seen) Urine Comment Administered Medications Dextrose/Sodium Chloride (D5w And 1/2nss) 1,000 mls @ 125 mls/hr IV .Q8H YANIRA Stop: 11/26/25 23:55 Last Admin: 11/24/25 00:26 Dose: 125 mls/hr Documented By: KIKO Acetaminophen (Ofirmev) 1,000 mg in 100 mls @ 400 mls/hr IV Q8H PRN PRN Reason: Pain or Fever Stop: 11/26/25 23:55 Last Infusion: 11/24/25 01:08 Dose: Infused Documented By: Admin: 11/24/25 00:27 Dose: 400 mls/hr Documented By: KIKO Discontinued Medications Sodium Chloride (Nss) 1,000 mls @ 999 mls/hr IV .Q1H1M ONE Stop: 11/23/25 19:48 Last Infusion: 11/23/25 20:12 Dose: Infused Documented By: Admin: 11/23/25 19:06 Dose: 999 mls/hr Documented By: DANIEL Famotidine (Pepcid 20mg Iv Push) 20 mg in 5 mls @ 2.5 mls/min IV NOW STA Stop: 11/23/25 18:49 Last Admin: 11/23/25 19:07 Dose: 2.5 mls/min Documented By: DANIEL Acetaminophen (Ofirmev) 1,000 mg in 100 mls @ 400 mls/hr IV NOW STA Stop: 11/23/25 19:04 Last Infusion: 11/23/25 19:36 Dose: Infused Documented By: Admin: 11/23/25 19:06 Dose: 400 mls/hr Documented By: DANIEL Sodium Chloride (Nss) 1,000 mls @ 999 mls/hr IV .Q1H1M ONE Stop: 11/23/25 22:36 Last Infusion: 11/23/25 22:56 Dose: Infused Documented By: Admin: 11/23/25 21:50 Dose: 999 mls/hr Documented By: DANIEL Piperacillin Sod/Tazobactam Sod (Zosyn) 4.5 gm in 100 mls @ 200 mls/hr IV NOW ONE; Protocol Stop: 11/23/25 22:19 Last Infusion: 11/23/25 22:56 Dose: Infused Documented By: Admin: 11/23/25 22:05 Dose: 200 mls/hr Documented By: DANIEL Ioversol (Optiray 320 100ml) 93 ml IV ONCE ONE Stop: 11/23/25 19:45 Last Admin: 11/23/25 19:44 Dose: 93 ml Documented By: SIL Ondansetron HCl (Ondansetron Inj 2 Mg/Ml 2 Ml Vial) 4 mg IV NOW STA Stop: 11/23/25 18:49 Last Admin: 11/23/25 19:06 Dose: 4 mg Documented By: DANIEL Imaging Data Radiologist's Impression: Abdomen/Pelvis CT 11/23/25 18:49 CT of the abdomen pelvis with IV contrast Technique: Postcontrast axial images of the abdomen pelvis. Coronal and sagittal reformatted images made available for review Comparison made to prior exam dated 11/19/2025 Findings: Lung bases are clear Solid abdominal organs are unremarkable in appearance. Extensive small bowel distention with a transition point in the right lower quadrant. There are number of hyperemic thick-walled loops of small bowel in this region. Surgical clips in the right lower quadrant suggest prior appendectomy. Subcutaneous emphysema overlying the right lower quadrant may be postoperative in nature. Bone windows demonstrate no focal abnormality Impression New Postoperative changes consistent with interval appendectomy with reactive wall thickening and hyperemia involving the right lower quadrant loops of small bowel. This ultimately resulted in a mild to moderate small bowel obstruction. No fluid collection identified on this exam. Electronically signed by Domo Lopez 11-23-2025 9:32 PM Discharge Plan Visit Data Chief Complaint: Nausea Stated Complaint: NAUSEA, UNABLE TO EAT, HAD APPENDECTOMY SAT AM ED Provider: Dixie Tapia ED Midlevel Provider: Elizabeth Ritchie Discharge Problem: SBO (small bowel obstruction), S/P laparoscopic appendectomy, Nausea & vomiting Patient Disposition: Admitted As Inpatient Condition: Fair Discharge Instructions Interventions: ED Discharge Assessment Last Done: 11/23/25 23:22
[2025-11-23] MEDS: SODIUM CHLORIDE 0.9% 1,000 ML IV ONE ×2 (19:06→21:50)
[2025-11-23] MEDS: ACETAMINOPHEN 1,000 MG/100 ML VIAL IV STA (19:06)
[2025-11-23] MEDS: ONDANSETRON INJ 2 MG/ML 2 ML VIAL IV STA (19:06)
[2025-11-23] MEDS: FAMOTIDINE 20MG IV PUSH 20 MG/5 ML SYR IV STA (19:07)
[2025-11-23 19:14] LABS: Hematocrit (blood only) 43.9 % (42.0-52.0); Hemoglobin 15.6 g/dL (14.0-18.0); Immature Granulocytes # (auto) 0.07 K/uL (0.01-0.20); Immature Granulocytes % (auto) 0.4 %; Mean Corpuscular Hemoglobin 29.1 pg (25.0-34.0); Mean Corpuscular Volume 81.9 fL (80.0-100.0); Platelet Count 225 K/uL (130-400); RDW Standard Deviation 38.5 fL (36.4-46.3); Red Blood Count 5.36 M/uL (4.70-6.10); White Blood Count 15.75 K/ul (4.8-10.8)
[2025-11-23 19:31] LABS: Alanine Aminotransferase 9.0 U/L (7-52); Albumin Globulin Ratio 1.1 (0.9-2); Albumin Level 3.9 gm/dl (3.4-5.0); Alkaline Phosphatase 61.0 U/L (34-104); Anion Gap 11.0 (3-11); Bilirubin,Total 0.8 mg/dl (0.2-1.0); Blood Urea Nitrogen 11.0 mg/dl (6-23); Calcium 9.7 mg/dl (8.6-10.3); Carbon Dioxide 29.0 mmol/L (21-32); Chloride 96.0 mmol/L (98-107); Creatinine Clr Calc Pharmacy 102.5 ml/min; Globulin 3.6 gm/dl (2.5-4.0); Glucose 115.0 mg/dl (70-99(Fasting)); Lipase 3.0 U/L (11-82); Potassium 3.3 mmol/L (3.5-5.1); Sodium 136.0 mmol/L (136-145); Total Protein 7.5 gm/dl (6.0-8.3)
[2025-11-23] MEDS: OPTIRAY 320 100ml IV ONE (19:44)
[2025-11-23 21:31] LABS: Appearance Urine Clear (Clear); Bacteria Urine Automated None Seen (None Seen); Cast Urine Automated 0-2 /lpf (0-2); Epithelial Cell Urine Auto 0-2 /hpf (0-2); Glucose Urine UA Negative (Negative); RBC Urine Automated 0-2 /hpf (0-2); WBC Urine Automated 0-5 /hpf (0-5)
--- NOTE | 2025-11-23 21:33 | CT Scan Report ---
CT of the abdomen pelvis with IV contrast Technique: Postcontrast axial images of the abdomen pelvis. Coronal and sagittal reformatted images made available for review Comparison made to prior exam dated 11/19/2025 Findings: Lung bases are clear Solid abdominal organs are unremarkable in appearance. Extensive small bowel distention with a transition point in the right lower quadrant. There are number of hyperemic thick-walled loops of small bowel in this region. Surgical clips in the right lower quadrant suggest prior appendectomy. Subcutaneous emphysema overlying the right lower quadrant may be postoperative in nature. Bone windows demonstrate no focal abnormality Impression New Postoperative changes consistent with interval appendectomy with reactive wall thickening and hyperemia involving the right lower quadrant loops of small bowel. This ultimately resulted in a mild to moderate small bowel obstruction. No fluid collection identified on this exam. Electronically signed by Domo Lopez 11-23-2025 9:32 PM
[2025-11-23] MEDS: PIPERACILLIN/TAZOBACTAM 4.5 GM/100 ML BAG IV ONE (22:05)
--- NOTE | 2025-11-23 22:48 | Surgery Consultation ---
Date of Consultation November 23, 2025 Assessment & Plan (1) S/P laparoscopic appendectomy: (2) Emesis: (3) Right sided abdominal pain: Plan 25-year-old gentleman 3 days status post laparoscopic appendectomy presents with nausea vomiting and what appears to be a small bowel obstruction/ileus. He is being admitted to medicine service. No acute surgical intervention is required at this time. Conservative management with IV fluids and bowel rest. Will follow while he is here. History of Present Illness Reason for Consultation: Postop ileus/small bowel obstruction Requesting Physician: ED physician Attending Physician: ED physician History of Present Illness 25-year-old presents 3 days status post laparoscopic appendectomy. He has had nausea and vomiting since the surgery. He has been passing a small amount of flatus and had a bowel movement this morning. Continues to have abdominal pain. CT scan demonstrates what appears to be a bowel obstruction. No abscess. He denies fevers and chills. He has been eating food. Allergies Allergy/AdvReac Type Severity Reaction Status Date / Time No Known Allergies Allergy Unknown Verified 02/05/04 10:21 Home Medications Medication Instructions Recorded Confirmed Type oxycodone 5 mg tablet 5 mg PO Q6H PRN pain #15 tabs 11/20/25 Rx amoxicillin 875 mg-potassium 1 tab PO Q12H 10 days #20 tabs 11/21/25 Rx clavulanate 125 mg tablet Patient History Medical History No pertinent past medical history Surgical History History of laparoscopic appendectomy (11/21/25) Laparoscopic Appendectomy(Not Applicable) - Abhijit Kendrick, Hx of wisdom tooth extraction Social History Smoking Status: Never smoker Second Hand Exposure: Yes; Do You Dip or Chew Tobacco: No; Hx Alcohol Use: Yes Alcohol type: hard liquor Hx Substance Use: Yes Last Used Substance Other:: A week ago Preferred Language: Swazi Communication Ability: Effective Nursery Nurse Required: No Beliefs That Will Affect Care: None Current Living Situation: Other Current Living Situation Comment: Grandfather and Aunt Feels Safe at Home: Yes Assistive Devices: Glasses Review of Systems Review of Systems: All systems reviewed & are unremarkable except as noted in HPI & below Physical Exam Constitutional: WD/WN, vitals as above Eyes: PERRL, conjunctivae normal, anicteric sclerae Neck: trachea midline, no thyromegaly Respiratory: normal respiratory effort; no respiratory distress and no labored breathing Cardiovascular: Rate/Rhythm: regular rate and regular rhythm Gastrointestinal (Abdomen): Inspection/Auscultation: abdomen normal to inspection, + abdomen distended ( mild) and + abdominal surgical incision ( clean, dry, intact) Percussion/Palpation: + abdomen tender ( Diffusely, mild) and abdomen soft; no guarding and abdomen not rigid Skin: no rashes, warm and dry Psychiatric: A+Ox3, euthymic affect Results & Data Vital Signs (Past 12 Hours) Vital Signs Temp Pulse Pulse Resp BP BP Pulse Ox 11/23/25 22:06 72 20 114/67 100 11/23/25 18:27 36 C L 118 H 18 137/90 96 O2 Del Method 11/23/25 22:06 Room Air 11/23/25 18:27 Room Air Laboratory Results 11/23/25 11/23/25 Range/Units 21:12 19:00 WBC 15.75 H (4.8-10.8) K/ul RBC 5.36 (4.70-6.10) M/uL Hgb 15.6 (14.0-18.0) g/dL Hct 43.9 (42.0-52.0) % MCV 81.9 (80.0-100.0) fL MCH 29.1 (25.0-34.0) pg MCHC 35.5 (32.0-36.0) g/dL RDW Std Deviation 38.5 (36.4-46.3) fL RDW Coeff of Joss 12.9 (11.5-14.5) % Plt Count 225 (130-400) K/uL MPV 10.0 (9.4-12.4) fL Immature Gran % (Auto) 0.4 % Neut % (Auto) 81.0 % Lymph % (Auto) 5.7 % [place] % (Auto) 12.1 % Eos % (Auto) 0.6 % Baso % (Auto) 0.2 % Neut # (Auto) 12.76 H (1.40-6.50) K/uL Lymph # (Auto) 0.89 L (1.20-3.40) K/uL [place] # (Auto) 1.90 H (0.11-0.59) K/uL Eos # (Auto) 0.10 (0.00-0.50) K/uL Baso # (Auto) 0.03 (0.00-0.20) K/uL Immature Gran # (Auto) 0.07 (0.01-0.20) K/uL Sodium 136 (136-145) mmol/L Potassium 3.3 L (3.5-5.1) mmol/L Chloride 96 L (98-107) mmol/L Carbon Dioxide 29 (21-32) mmol/L Anion Gap 11 (3-11) BUN 11 (6-23) mg/dl Creatinine 0.84 (0.6-1.4) mg/dl Est Cr Clr Drug Dosing 102.5 ml/min eGFR 125.66 BUN/Creatinine Ratio 13.1 (10-20) Glucose 115 H (70-99(Fasting)) mg/dl Calcium 9.7 (8.6-10.3) mg/dl Total Bilirubin 0.8 (0.2-1.0) mg/dl AST 11 L (13-39) U/L ALT 9 (7-52) U/L Alkaline Phosphatase 61 (34-104) U/L Total Protein 7.5 (6.0-8.3) gm/dl Albumin 3.9 (3.4-5.0) gm/dl Globulin 3.6 (2.5-4.0) gm/dl Albumin/Globulin Ratio 1.1 (0.9-2) Lipase 3 L (11-82) U/L Urine Color Yellow Urine Appearance Clear (Clear) Urine pH 6.0 (4.5-7.5) Ur Specific [place] > 1.045 H (1.000-1.030) Urine Protein 1+ H (Negative) Urine Glucose (UA) Negative (Negative) Urine Ketones 3+ H (Negative) Urine Blood Trace H (Negative) Urine Nitrite Negative (Negative) Urine Bilirubin Negative (Negative) Urine Urobilinogen Negative (Negative) Ur Leukocyte Esterase Negative (Negative) Urine WBC (Auto) 0-5 (0-5) /hpf Urine RBC (Auto) 0-2 (0-2) /hpf U Hyaline Cast (Auto) 0-2 (0-2) /lpf U Epithel Cells (Auto) 0-2 (0-2) /hpf Urine Bacteria (Auto) None Seen (None Seen) Urine Comment Diagnostic Findings T of the abdomen pelvis with IV contrast Technique: Postcontrast axial images of the abdomen pelvis. Coronal and sagittal reformatted images made available for review Comparison made to prior exam dated 11/19/2025 Findings: Lung bases are clear Solid abdominal organs are unremarkable in appearance. Extensive small bowel distention with a transition point in the right lower quadrant. There are number of hyperemic thick-walled loops of small bowel in this region. Surgical clips in the right lower quadrant suggest prior appendectomy. Subcutaneous emphysema overlying the right lower quadrant may be postoperative in nature. Bone windows demonstrate no focal abnormality Impression New Postoperative changes consistent with interval appendectomy with reactive wall thickening and hyperemia involving the right lower quadrant loops of small bowel. This ultimately resulted in a mild to moderate small bowel obstruction. No fluid collection identified on this exam. Electronically signed by Domo Lopez 11-23-2025 9:32 PM Dictated: 11/23/251937 Transcribed:
--- NOTE | 2025-11-23 22:58 | History & Physical Report ---
Date of Service November 23, 2025 Assessment & Plan (1) SBO (small bowel obstruction): Plan: 25-year-old male with no significant past med history was status post appendectomy on 11/20/2025 and was discharged on Augmentin for 10 days, comes because of nausea and abdominal pain and found to have small bowel obstruction. Patient says he is not able to eat much as his stomach was feeling full after small amount of food. Was feeling nauseous and had 1 episode of vomiting. Having abdominal pain. Abdominal pain is more when trying to go to the bathroom. His last bowel movement was today morning. He is passing small amount of gas. Micturating okay. Denies any fevers. No chest pain. No shortness of breath. No headache. No runny nose or sore throat. No cough. Currently resting comfortably and hemodynamically stable. Small bowel obstruction Recent appendectomy N.p.o. IV fluids IV antiemetics as needed, IV pain meds as needed IV Zosyn Surgical consult DVT prophylaxis SCDs and ambulation for now Disposition Medical floor Full code. History of Present Illness Chief Complaint: Nausea and abdominal pain Primary Care Provider: NO PCP 25-year-old male with no significant past med history was status post appendectomy on 11/20/2025 and was discharged on Augmentin for 10 days, comes because of nausea and abdominal pain and found to have small bowel obstruction. Patient says he is not able to eat much as his stomach was feeling full after small amount of food. Was feeling nauseous and had 1 episode of vomiting. Having abdominal pain. Abdominal pain is more when trying to go to the bathroom. His last bowel movement was today morning. He is passing small amount of gas. Micturating okay. Denies any fevers. No chest pain. No shortness of breath. No headache. No runny nose or sore throat. No cough. Currently resting comfortably and hemodynamically stable. Past med history. None. Past surgical history. Appendectomy. Social history. No smoking. No alcohol use. Smokes marijuana. Family history. Significant for diabetes. Allergies Allergy/AdvReac Type Severity Reaction Status Date / Time No Known Allergies Allergy Unknown Verified 02/05/04 10:21 Home Medications Medication Instructions Recorded Confirmed Type amoxicillin 875 mg-potassium 1 tab PO BID 11/23/25 11/23/25 History clavulanate 125 mg tablet oxycodone 5 mg tablet 5 mg PO Q6H PRN Pain 11/23/25 11/23/25 History Past Med/Surg History Problem List (Updated 11/24/25 @ 02:48 by Elizabeth Ritchie PA-C) Nausea & vomiting (Acute) SBO (small bowel obstruction) (Acute) S/P laparoscopic appendectomy (Acute) Encounter for pre-operative examination Acute appendicitis (Acute) Emesis (Acute) Right sided abdominal pain (Acute) Medical History No pertinent past medical history Surgical History History of laparoscopic appendectomy (11/21/25) Laparoscopic Appendectomy(Not Applicable) - Abhijit Kendrick, Hx of wisdom tooth extraction Social History Smoking Status: Never smoker Second Hand Exposure: Yes; Do You Dip or Chew Tobacco: No; Hx Alcohol Use: Yes Alcohol type: hard liquor Hx Substance Use: Yes (Former) Last Used Substance Other:: A week ago Preferred Language: Mohawk Communication Ability: Effective Manager Equity Required: No Beliefs That Will Affect Care: None Current Living Situation: Family Current Living Situation Comment: Grandfather and Aunt Other Information That Helps Us Care for You: No Feels Safe at Home: Yes Safety Concerns: Feels Safe At This Time Assistive Devices: Glasses Review of Systems Review of Systems: All systems reviewed & are unremarkable except as noted in HPI & below Physical Exam Physical Exam: General- Not in distress. Head- atraumatic Eyes- PERRL. ENT- oropharynx clear Neck- supple, no JVD. Lungs- clear to auscultation no wheezing or crackles Heart- regular rhythm; no murmur, no gallop. Abdomen- sluggish bowel sounds, soft, discomfort on palpation, no distension Extremities- no pretibial edema, no erythema seen Neuro- alert, oriented PERRL, no facial palsy; no dysarthria; moves extremities Results & Data Results & Data Vital Signs (Past 12 Hours) Vital Signs Temp Pulse Pulse Resp BP BP Pulse Ox 11/23/25 22:06 72 20 114/67 100 11/23/25 18:27 36 C L 118 H 18 137/90 96 O2 Del Method 11/23/25 22:06 Room Air 11/23/25 18:27 Room Air Diagnostic Findings Laboratory Results WBC 15.75 K/ul (4.8-10.8) H 11/23/25 19:00 RBC 5.36 M/uL (4.70-6.10) 11/23/25 19:00 Hgb 15.6 g/dL (14.0-18.0) 11/23/25 19:00 Hct 43.9 % (42.0-52.0) 11/23/25 19:00 MCV 81.9 fL (80.0-100.0) 11/23/25 19:00 MCH 29.1 pg (25.0-34.0) 11/23/25 19:00 MCHC 35.5 g/dL (32.0-36.0) 11/23/25 19:00 RDW Std Deviation 38.5 fL (36.4-46.3) 11/23/25 19:00 RDW Coeff of Joss 12.9 % (11.5-14.5) 11/23/25 19:00 Plt Count 225 K/uL (130-400) 11/23/25 19:00 MPV 10.0 fL (9.4-12.4) 11/23/25 19:00 Immature Gran % (Auto) 0.4 % 11/23/25 19:00 Neut % (Auto) 81.0 % 11/23/25 19:00 Lymph % (Auto) 5.7 % 11/23/25 19:00 [place] % (Auto) 12.1 % 11/23/25 19:00 Eos % (Auto) 0.6 % 11/23/25 19:00 Baso % (Auto) 0.2 % 11/23/25 19:00 Neut # (Auto) 12.76 K/uL (1.40-6.50) H 11/23/25 19:00 Lymph # (Auto) 0.89 K/uL (1.20-3.40) L 11/23/25 19:00 [place] # (Auto) 1.90 K/uL (0.11-0.59) H 11/23/25 19:00 Eos # (Auto) 0.10 K/uL (0.00-0.50) 11/23/25 19:00 Baso # (Auto) 0.03 K/uL (0.00-0.20) 11/23/25 19:00 Immature Gran # (Auto) 0.07 K/uL (0.01-0.20) 11/23/25 19:00 Sodium 136 mmol/L (136-145) 11/23/25 19:00 Potassium 3.3 mmol/L (3.5-5.1) L 11/23/25 19:00 Chloride 96 mmol/L (98-107) L 11/23/25 19:00 Carbon Dioxide 29 mmol/L (21-32) 11/23/25 19:00 Anion Gap 11 (3-11) 11/23/25 19:00 BUN 11 mg/dl (6-23) 11/23/25 19:00 Creatinine 0.84 mg/dl (0.6-1.4) 11/23/25 19:00 Est Cr Clr Drug Dosing 102.5 ml/min 11/23/25 19:00 eGFR 125.66 11/23/25 19:00 BUN/Creatinine Ratio 13.1 (10-20) 11/23/25 19:00 Glucose 115 mg/dl (70-99(Fasting)) H 11/23/25 19:00 Calcium 9.7 mg/dl (8.6-10.3) 11/23/25 19:00 Total Bilirubin 0.8 mg/dl (0.2-1.0) 11/23/25 19:00 AST 11 U/L (13-39) L 11/23/25 19:00 ALT 9 U/L (7-52) 11/23/25 19:00 Alkaline Phosphatase 61 U/L (34-104) 11/23/25 19:00 Total Protein 7.5 gm/dl (6.0-8.3) 11/23/25 19:00 Albumin 3.9 gm/dl (3.4-5.0) 11/23/25 19:00 Globulin 3.6 gm/dl (2.5-4.0) 11/23/25 19:00 Albumin/Globulin Ratio 1.1 (0.9-2) 11/23/25 19:00 Lipase 3 U/L (11-82) L 11/23/25 19:00 Urine Color Yellow 11/23/25 21:12 Urine Appearance Clear (Clear) 11/23/25 21:12 Urine pH 6.0 (4.5-7.5) 11/23/25 21:12 Ur Specific [place] > 1.045 (1.000-1.030) H 11/23/25 21:12 Urine Protein 1+ (Negative) H 11/23/25 21:12 Urine Glucose (UA) Negative (Negative) 11/23/25 21:12 Urine Ketones 3+ (Negative) H 11/23/25 21:12 Urine Blood Trace (Negative) H 11/23/25 21:12 Urine Nitrite Negative (Negative) 11/23/25 21:12 Urine Bilirubin Negative (Negative) 11/23/25 21:12 Urine Urobilinogen Negative (Negative) 11/23/25 21:12 Ur Leukocyte Esterase Negative (Negative) 11/23/25 21:12 Urine WBC (Auto) 0-5 /hpf (0-5) 11/23/25 21:12 Urine RBC (Auto) 0-2 /hpf (0-2) 11/23/25 21:12 U Hyaline Cast (Auto) 0-2 /lpf (0-2) 11/23/25 21:12 U Epithel Cells (Auto) 0-2 /hpf (0-2) 11/23/25 21:12 Urine Bacteria (Auto) None Seen (None Seen) 11/23/25 21:12 Urine Comment 11/23/25 21:12 Impressions Abdomen/Pelvis CT 11/23/25 18:49 CT of the abdomen pelvis with IV contrast Technique: Postcontrast axial images of the abdomen pelvis. Coronal and sagittal reformatted images made available for review Comparison made to prior exam dated 11/19/2025 Findings: Lung bases are clear Solid abdominal organs are unremarkable in appearance. Extensive small bowel distention with a transition point in the right lower quadrant. There are number of hyperemic thick-walled loops of small bowel in this region. Surgical clips in the right lower quadrant suggest prior appendectomy. Subcutaneous emphysema overlying the right lower quadrant may be postoperative in nature. Bone windows demonstrate no focal abnormality Impression New Postoperative changes consistent with interval appendectomy with reactive wall thickening and hyperemia involving the right lower quadrant loops of small bowel. This ultimately resulted in a mild to moderate small bowel obstruction. No fluid collection identified on this exam. Electronically signed by Domo Lopez 11-23-2025 9:32 PM Code Status & VTE Plan VTE Prophylaxis Plan VTE Prophylaxis will be ordered: Yes
[2025-11-23] MEDS ORDERED: HYDROmorphone INJ 0.5 MG/0.5 ML SYR IV PRN ×2 (23:56)
[2025-11-23] MEDS ORDERED: ONDANSETRON INJ 2 MG/ML 2 ML VIAL IV PRN (23:56)
[2025-11-24] MEDS: D5W AND 1/2NSS 1,000 ML IV SCH (00:26)
[2025-11-24] MEDS: ACETAMINOPHEN 1,000 MG/100 ML VIAL IV PRN (00:27)
[2025-11-24 06:17] LABS: Hematocrit (blood only) 37.1 % (42.0-52.0); Hemoglobin 13.0 g/dL (14.0-18.0); Immature Granulocytes # (auto) 0.05 K/uL (0.01-0.20); Immature Granulocytes % (auto) 0.4 %; Mean Corpuscular Hemoglobin 28.9 pg (25.0-34.0); Mean Corpuscular Volume 82.4 fL (80.0-100.0); Platelet Count 219 K/uL (130-400); RDW Standard Deviation 39.0 fL (36.4-46.3); Red Blood Count 4.50 M/uL (4.70-6.10); White Blood Count 11.20 K/ul (4.8-10.8)
[2025-11-24] MEDS: PIPERACILLIN/TAZOBACTAM 4.5 GM/100 ML BAG IV SCH (06:43)
[2025-11-24 06:46] LABS: Anion Gap 8.0 (3-11); Blood Urea Nitrogen 7.0 mg/dl (6-23); Calcium 8.5 mg/dl (8.6-10.3); Carbon Dioxide 29.0 mmol/L (21-32); Chloride 103.0 mmol/L (98-107); Creatinine Clr Calc Pharmacy 132.5 ml/min; Glucose 116.0 mg/dl (70-99(Fasting)); Magnesium 2.0 mg/dl (1.7-2.4); Potassium 3.4 mmol/L (3.5-5.1); Sodium 140.0 mmol/L (136-145)
[2025-11-24] MEDS ORDERED: POTASSIUM CHLORIDE CRTAB 20 MEQ TABCR PO STA (07:54)
--- NOTE | 2025-11-24 08:36 | Hospitalist Progress Note ---
Date of Service November 24, 2025 Assessment & Plan (1) SBO (small bowel obstruction): (2) S/P laparoscopic appendectomy: Plan 25-year-old male with PMH significant for recent appendectomy on 11/20/2025 who presented to the ED on 11/23/2025 with nausea and abdominal pain and found to have small bowel obstruction. Small bowel obstruction s/p appendectomy POD#4 laparoscopic appendectomy on 11/20/[address] 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 Ramirez. Please see addendum. I spent a total of 50 minutes coordinating, documenting and providing care for this patient excluding time spent in the performance of separately billed services or time spent by another provider/QHP. Admission and Anticipated Discharge Date Admission Date: November 23, 2025 Supervising Physician Co-Signing Physician Notes Attending addendum: The patient was seen and examined in medical floor He is a status post laparoscopic appendectomy on 11/20/2025 and came in with SBO He has been feeling much better since this morning and clears have been started His examination remained unremarkable without any fever and no chills He has been moving his bowels and his diet will be advanced accordingly Likely discharge tomorrow Agree with assessment and plan as outlined above by Jaycee GIL and take the full responsibility care in the hospital I spent a couple of 20 minutes examining the patient, reviewing the chart and medications and plan of care Dr Nabil ramirez Subjective Patient seen resting in bed Reports no abdominal pain, N/V Moved bowels overnight Feels hungry and would like to eat Denies dizziness, chest pain, SOB Review of Systems Review of Systems: All systems reviewed & are unremarkable except as noted in HPI & below Physical Exam Physical Exam: General/Psych: frail, sitting up in bed, NAD, conversing easily Head: normocephalic, atraumatic Eyes: normal inspection, PERRL, conjunctivae pink Neck: normal visual inspection, trachea midline Respiratory: normal respiratory effort, lungs clear to auscultation, no wheeze/rales/rhonchi, no accessory muscle use Cardiovascular: regular rate and rhythm, no murmur/rub/gallop Extremities: no cyanosis or clubbing, normal peripheral pulses, no BLE edema Abdomen/GI: normal bowel sounds, soft, nontender Neurologic/MSK: A+Ox3, motor strength 5/5, moves all extremities Skin: no rashes, normal color, warm and dry, x3 laparoscopic sites c/d/i Results & Data Results & Data Vital Signs (Past 12 Hours) Vital Signs Temp Pulse Pulse Resp BP BP BP 11/24/25 07:14 36.9 C 67 17 113/72 11/24/25 00:45 37.0 C 62 16 118/80 11/23/25 23:22 77 16 115/68 11/23/25 22:06 72 20 114/67 Pulse Ox O2 Del Method 11/24/25 07:14 93 Room Air 11/24/25 00:45 99 Room Air 11/23/25 23:22 98 Room Air 11/23/25 22:06 100 Room Air Laboratory Results Short CBC 11/23/25 11/24/25 Range/Units 19:00 05:22 WBC 15.75 H 11.20 H (4.8-10.8) K/ul Hgb 15.6 13.0 L (14.0-18.0) g/dL Hct 43.9 37.1 L (42.0-52.0) % Plt Count 225 219 (130-400) K/uL BMP 11/23/25 11/24/25 19:00 05:22 Sodium 136 140 Potassium 3.3 L 3.4 L Chloride 96 L 103 Carbon Dioxide 29 29 BUN 11 7 Creatinine 0.84 0.65 Glucose 115 H 116 H Calcium 9.7 8.5 L Liver Function 11/23/25 Range/Units 19:00 Total Bilirubin 0.8 (0.2-1.0) mg/dl AST 11 L (13-39) U/L ALT 9 (7-52) U/L Alkaline Phosphatase 61 (34-104) U/L Albumin 3.9 (3.4-5.0) gm/dl Urine 11/23/25 Range/Units 21:12 Urine Color Yellow Urine Appearance Clear (Clear) Urine pH 6.0 (4.5-7.5) Ur Specific [place] > 1.045 H (1.000-1.030) Urine Protein 1+ H (Negative) Urine Glucose (UA) Negative (Negative) I have independently reviewed and interpreted patient's labs including CBC, BMP, Mag Medications Administered Current Inpatient Medications Acetaminophen (Acetaminophen 325 Mg Tab) 650 mg PO Q4H PRN PRN Reason: Mild Pain (Scale 1, 2, 3) Stop: 12/24/25 11:49 Hydromorphone HCl (Hydromorphone Inj 0.5 Mg/0.5 Ml Syr) 0.25 mg IV Q6H PRN PRN Reason: Moderate Pain (Scale 4, 5, 6) Stop: 12/07/25 23:55 Hydromorphone HCl (Hydromorphone Inj 0.5 Mg/0.5 Ml Syr) 0.5 mg IV Q6H PRN PRN Reason: Severe Pain (Scale 7, 8, 9,10) Stop: 12/07/25 23:55 Dextrose/Sodium Chloride (D5w And 1/2nss) 1,000 mls @ 80 mls/hr IV .[id number] Stop: 11/26/25 23:55 Last Infusion: 11/24/25 11:59 Dose: 80 mls/hr Piperacillin Sod/Tazobactam Sod (Zosyn) 4.5 gm in 100 mls @ 25 mls/hr IV Q8H YANIRA; Protocol Stop: 12/04/25 05:59 Last Infusion: 11/24/25 10:43 Dose: Infused Acetaminophen (Ofirmev) 1,000 mg in 100 mls @ 400 mls/hr IV Q8H PRN PRN Reason: Pain or Fever Stop: 11/26/25 23:55 Last Infusion: 11/24/25 01:08 Dose: Infused Ondansetron HCl (Ondansetron Inj 2 Mg/Ml 2 Ml Vial) 4 mg IV Q6H PRN PRN Reason: Nausea Stop: 12/23/25 23:55 Oxycodone/Acetaminophen (Oxycodone/Acetaminophen 5mg/325mg Tab) 1 tab PO Q4H PRN PRN Reason: Pain 1-6 Stop: 12/08/25 10:48 Oxycodone/Acetaminophen (Oxycodone/Acetaminophen 5mg/325mg Tab) 2 tab PO Q4H PRN PRN Reason: Severe Pain (Scale 7, 8, 9,10) Stop: 12/08/25 10:48
[2025-11-24] MEDS: POTASSIUM CHLORIDE / WTR 10 MEQ/100 ML PLCT IV SCH (08:50)
--- NOTE | 2025-11-24 10:52 | Surgery Progress Note ---
Date of Service November 24, 2025 Assessment & Plan (1) S/P laparoscopic appendectomy: (2) Emesis: (3) Right sided abdominal pain: Plan avss pain improved, minimal this am +return of bowel function no n,v Plan: Can advance to clear liquids oral pain management ordered prn Encouraged ambulation hopefully can increase diet further this afternoon Discussed with Dr. Casanova who agrees with above. Admission and Anticipated Discharge Date Admission Date: November 23, 2025 Subjective feeling better today feeling hungry abdominal pain minimal this morning had two bowel movements last night passing gas no n,v ambulating no chest pain ,sob, fever or chills Physical Exam Constitutional: WD/WN, vitals as above cooperative and comfortable; no acute distress and not ill appearing Respiratory: normal respiratory effort, lungs clear to auscultation Cardiovascular: RRR, no murmur, no edema Gastrointestinal (Abdomen): Inspection/Auscultation: abdomen normal to inspection and + abdominal surgical incision (c/d/i with dermabond); abdomen not distended Percussion/Palpation: + abdomen tender (RLQ and at incision sites, appropriate postop) and abdomen soft; no guarding, abdomen not rigid and abdomen not firm Skin: no rashes, warm and dry Psychiatric: Orientation: alert and oriented x 3 Results & Data Vital Signs (Past 12 Hours) Vital Signs Temp Pulse Pulse Resp BP BP Pulse Ox 11/24/25 07:14 36.9 C 67 17 113/72 93 11/24/25 00:45 37.0 C 62 16 118/80 99 11/23/25 23:22 77 16 115/68 98 O2 Del Method 11/24/25 07:14 Room Air 11/24/25 00:45 Room Air 11/23/25 23:22 Room Air Laboratory Results 11/24/25 11/23/25 11/23/25 Range/Units 05:22 21:12 19:00 WBC 11.20 H 15.75 H (4.8-10.8) K/ul RBC 4.50 L 5.36 (4.70-6.10) M/uL Hgb 13.0 L 15.6 (14.0-18.0) g/dL Hct 37.1 L 43.9 (42.0-52.0) % MCV 82.4 81.9 (80.0-100.0) fL MCH 28.9 29.1 (25.0-34.0) pg MCHC 35.0 35.5 (32.0-36.0) g/dL RDW Std Deviation 39.0 38.5 (36.4-46.3) fL RDW Coeff of Joss 12.9 12.9 (11.5-14.5) % Plt Count 219 225 (130-400) K/uL MPV 10.7 10.0 (9.4-12.4) fL Immature Gran % (Auto) 0.4 0.4 % Neut % (Auto) 75.9 81.0 % Lymph % (Auto) 10.4 5.7 % [place] % (Auto) 12.3 12.1 % Eos % (Auto) 0.8 0.6 % Baso % (Auto) 0.2 0.2 % Neut # (Auto) 8.49 H 12.76 H (1.40-6.50) K/uL Lymph # (Auto) 1.17 L 0.89 L (1.20-3.40) K/uL [place] # (Auto) 1.38 H 1.90 H (0.11-0.59) K/uL Eos # (Auto) 0.09 0.10 (0.00-0.50) K/uL Baso # (Auto) 0.02 0.03 (0.00-0.20) K/uL Immature Gran # (Auto) 0.05 0.07 (0.01-0.20) K/uL Sodium 140 136 (136-145) mmol/L Potassium 3.4 L 3.3 L (3.5-5.1) mmol/L Chloride 103 96 L (98-107) mmol/L Carbon Dioxide 29 29 (21-32) mmol/L Anion Gap 8 11 (3-11) BUN 7 11 (6-23) mg/dl Creatinine 0.65 0.84 (0.6-1.4) mg/dl Est Cr Clr Drug Dosing 132.5 102.5 ml/min eGFR 135.78 125.66 BUN/Creatinine Ratio 10.8 13.1 (10-20) Glucose 116 H 115 H (70-99(Fasting)) mg/dl Calcium 8.5 L 9.7 (8.6-10.3) mg/dl Magnesium 2.0 (1.7-2.4) mg/dl Total Bilirubin 0.8 (0.2-1.0) mg/dl AST 11 L (13-39) U/L ALT 9 (7-52) U/L Alkaline Phosphatase 61 (34-104) U/L Total Protein 7.5 (6.0-8.3) gm/dl Albumin 3.9 (3.4-5.0) gm/dl Globulin 3.6 (2.5-4.0) gm/dl Albumin/Globulin Ratio 1.1 (0.9-2) Lipase 3 L (11-82) U/L Urine Color Yellow Urine Appearance Clear (Clear) Urine pH 6.0 (4.5-7.5) Ur Specific [place] > 1.045 H (1.000-1.030) Urine Protein 1+ H (Negative) Urine Glucose (UA) Negative (Negative) Urine Ketones 3+ H (Negative) Urine Blood Trace H (Negative) Urine Nitrite Negative (Negative) Urine Bilirubin Negative (Negative) Urine Urobilinogen Negative (Negative) Ur Leukocyte Esterase Negative (Negative) Urine WBC (Auto) 0-5 (0-5) /hpf Urine RBC (Auto) 0-2 (0-2) /hpf U Hyaline Cast (Auto) 0-2 (0-2) /lpf U Epithel Cells (Auto) 0-2 (0-2) /hpf Urine Bacteria (Auto) None Seen (None Seen) Urine Comment
[2025-11-24] MEDS ORDERED: ACETAMINOPHEN 325 MG TAB PO PRN (11:50)
[2025-11-25 06:24] LABS: Hematocrit (blood only) 35.5 % (42.0-52.0); Hemoglobin 12.3 g/dL (14.0-18.0); Mean Corpuscular Hemoglobin 28.7 pg (25.0-34.0); Mean Corpuscular Volume 82.8 fL (80.0-100.0); Platelet Count 264 K/uL (130-400); RDW Standard Deviation 39.2 fL (36.4-46.3); Red Blood Count 4.29 M/uL (4.70-6.10); White Blood Count 7.96 K/ul (4.8-10.8)
[2025-11-25 06:56] LABS: Anion Gap 6.0 (3-11); Blood Urea Nitrogen 3.0 mg/dl (6-23); Calcium 8.9 mg/dl (8.6-10.3); Carbon Dioxide 31.0 mmol/L (21-32); Chloride 105.0 mmol/L (98-107); Creatinine Clr Calc Pharmacy 130.5 ml/min; Glucose 98.0 mg/dl (70-99(Fasting)); Potassium 3.7 mmol/L (3.5-5.1); Sodium 142.0 mmol/L (136-145)
[2025-11-25 07:12] VITALS: BP 104/65; PULSE 62; RESP 14; TEMP 98.4; O2SAT 98
[2025-11-25] MEDS: POTASSIUM CHLORIDE CRTAB 20 MEQ TABCR PO STA (08:40)
--- NOTE | 2025-11-25 09:42 | Surgery Progress Note ---
Date of Service November 25, 2025 Assessment & Plan (1) SBO (small bowel obstruction): Plan: resolved discharge per medical team ambulate and limit narcotics as outpatient F/U w/ [facility] surgeons Admission and Anticipated Discharge Date Admission Date: November 23, 2025 Subjective no complaints taking po having BMs Review of Systems Constitutional: no fever and no chills Respiratory: no dyspnea Cardiovascular: no chest pain Gastrointestinal: no abdominal pain, no nausea, no vomiting and no change in bowel habits Neurologic: + generalized weakness Psychiatric: no behavioral changes Physical Exam Constitutional: WD/WN, vitals as above Respiratory: normal respiratory effort Cardiovascular: Rate/Rhythm: regular rate and regular rhythm Gastrointestinal (Abdomen): Inspection/Auscultation: abdomen normal to inspection; abdomen not distended Percussion/Palpation: abdomen soft; abdomen nontender Musculoskeletal: Head/Neck/Chest: normocephalic and head atraumatic Results & Data Vital Signs (Past 12 Hours) Vital Signs Temp Pulse Resp BP Pulse Ox O2 Del Method 11/25/25 07:11 36.9 C 62 14 104/65 98 Room Air 11/24/25 21:47 36.6 C 69 16 110/69 97 Room Air
--- NOTE | 2025-11-25 10:54 | Hospitalist Progress Note ---
Date of Service November 25, 2025 Assessment & Plan (1) SBO (small bowel obstruction): (2) S/P laparoscopic appendectomy: Plan 25-year-old male with PMH significant for recent appendectomy on 11/20/2025 who presented to the ED on 11/23/2025 with nausea and abdominal pain and found to have small bowel obstruction. Small bowel obstruction s/p appendectomy POD#4 laparoscopic appendectomy on 11/20/[address] Kendrick Operative report noted no perforation but mesenteric abscess-> discharged on Augmentin for 10 days CTAP shows mild to moderate SBO Labs remarkable for slight leukocytosis 15K-> 11K today Surgery consulted: recommending conservative management Pain is controlled Continue Zosyn while inpatient Advance diet to clears and continue to advance as tolerated Has been tolerating regular diet and bowel is moving The patient is moving around in the room and in the hallway without any difficulties and will be discharged home this afternoon DVT Prophylaxis: SCDs Code Status: FULL CODE PCP: None Disposition: dc to home when medically ready I spent a total of 35 minutes examining the patient, reviewing the chart and the medications and also investigations and planning of care. Admission and Anticipated Discharge Date Admission Date: November 23, 2025 Subjective 11/25/2025 The patient was seen and examined in medical floor He has been ambulating in the room without any symptoms Has been tolerating diet and having bowel movement He will be discharged home this afternoon Review of Systems Review of Systems: All systems reviewed and are unremarkable except as noted below Physical Exam Physical Exam: General/Psych: Sitting at the edge of the bed and moving around in the room without any acute distress Head: normocephalic, atraumatic Eyes: normal inspection, PERRL, conjunctivae pink Neck: normal visual inspection, trachea midline Respiratory: normal respiratory effort, lungs clear to auscultation, no wheeze/rales/rhonchi, no accessory muscle use Cardiovascular: regular rate and rhythm, no murmur/rub/gallop Extremities: no cyanosis or clubbing, normal peripheral pulses, no BLE edema Abdomen/GI: normal bowel sounds, soft, nontender Neurologic/MSK: A+Ox3, motor strength 5/5, moves all extremities Skin: no rashes, normal color, warm and dry, x3 laparoscopic sites c/d/i Results & Data Results & Data Vital Signs (Past 12 Hours) Vital Signs Temp Pulse Resp BP Pulse Ox O2 Del Method 11/25/25 07:11 36.9 C 62 14 104/65 98 Room Air Laboratory Results Short CBC 11/25/25 Range/Units 05:30 WBC 7.96 (4.8-10.8) K/ul Hgb 12.3 L (14.0-18.0) g/dL Hct 35.5 L (42.0-52.0) % Plt Count 264 (130-400) K/uL BMP 11/25/25 05:30 Sodium 142 Potassium 3.7 Chloride 105 Carbon Dioxide 31 BUN 3 L Creatinine 0.66 Glucose 98 Calcium 8.9 Medications Administered Current Inpatient Medications Acetaminophen (Acetaminophen 325 Mg Tab) 650 mg PO Q4H PRN PRN Reason: Mild Pain (Scale 1, 2, 3) Stop: 12/24/25 11:49 Hydromorphone HCl (Hydromorphone Inj 0.5 Mg/0.5 Ml Syr) 0.25 mg IV Q6H PRN PRN Reason: Moderate Pain (Scale 4, 5, 6) Stop: 12/07/25 23:55 Hydromorphone HCl (Hydromorphone Inj 0.5 Mg/0.5 Ml Syr) 0.5 mg IV Q6H PRN PRN Reason: Severe Pain (Scale 7, 8, 9,10) Stop: 12/07/25 23:55 Dextrose/Sodium Chloride (D5w And 1/2nss) 1,000 mls @ 80 mls/hr IV .[id number] [facility] Stop: 11/26/25 23:55 Last Admin: 11/24/25 23:16 Dose: 80 mls/hr Piperacillin Sod/Tazobactam Sod (Zosyn) 4.5 gm in 100 mls @ 25 mls/hr IV Q8H [facility]; Protocol Stop: 12/04/25 05:59 Last Infusion: 11/25/25 10:17 Dose: Infused Acetaminophen (Ofirmev) 1,000 mg in 100 mls @ 400 mls/hr IV Q8H PRN PRN Reason: Pain or Fever Stop: 11/26/25 23:55 Last Infusion: 11/24/25 01:08 Dose: Infused Ondansetron HCl (Ondansetron Inj 2 Mg/Ml 2 Ml Vial) 4 mg IV Q6H PRN PRN Reason: Nausea Stop: 12/23/25 23:55 Oxycodone/Acetaminophen (Oxycodone/Acetaminophen 5mg/325mg Tab) 1 tab PO Q4H PRN PRN Reason: Pain 1-6 Stop: 12/08/25 10:48 Oxycodone/Acetaminophen (Oxycodone/Acetaminophen 5mg/325mg Tab) 2 tab PO Q4H PRN PRN Reason: Severe Pain (Scale 7, 8, 9,10) Stop: 12/08/25 10:48
--- NOTE | 2025-11-25 16:58 | Discharge Summary ---
Date of Service November 25, 2025 Admission HPI Per Admitting Provider 25-year-old male with no significant past med history was status post appendectomy on 11/20/2025 and was discharged on Augmentin for 10 days, comes because of nausea and abdominal pain and found to have small bowel obstruction. Patient says he is not able to eat much as his stomach was feeling full after small amount of food. Was feeling nauseous and had 1 episode of vomiting. Having abdominal pain. Abdominal pain is more when trying to go to the bathroom. His last bowel movement was today morning. He is passing small amount of gas. Micturating okay. Denies any fevers. No chest pain. No shortness of breath. No headache. No runny nose or sore throat. No cough. Currently resting comfortably and hemodynamically stable. Past med history. None. Past surgical history. Appendectomy. Social history. No smoking. No alcohol use. Smokes marijuana. Family history. Significant for diabetes. Admission Exam Per Admitting Provider Physical Exam: General- Not in distress. Head- atraumatic Eyes- PERRL. ENT- oropharynx clear Neck- supple, no JVD. Lungs- clear to auscultation no wheezing or crackles Heart- regular rhythm; no murmur, no gallop. Abdomen- sluggish bowel sounds, soft, discomfort on palpation, no distension Extremities- no pretibial edema, no erythema seen Neuro- alert, oriented PERRL, no facial palsy; no dysarthria; moves extremities Principal Diagnosis Small bowel obstruction status post laparoscopic appendectomy Discharge Exam General/Psych: Sitting at the edge of the bed and moving around in the room without any acute distress Head: normocephalic, atraumatic Eyes: normal inspection, PERRL, conjunctivae pink Neck: normal visual inspection, trachea midline Respiratory: normal respiratory effort, lungs clear to auscultation, no wheeze/rales/rhonchi, no accessory muscle use Cardiovascular: regular rate and rhythm, no murmur/rub/gallop Extremities: no cyanosis or clubbing, normal peripheral pulses, no BLE edema Abdomen/GI: normal bowel sounds, soft, nontender Neurologic/MSK: A+Ox3, motor strength 5/5, moves all extremities Skin: no rashes, normal color, warm and dry, x3 laparoscopic sites c/d/i Discharge Data Allergies Allergy/AdvReac Type Severity Reaction Status Date / Time No Known Allergies Allergy Unknown Verified 02/05/04 10:21 Consultations 11/23/25 22:09 Consult General Surgery Routine ED Decision to Admit Stat Ordered Studies 11/23/25 18:49 CT abd pelvis IV con only Stat Hospital Course (1) SBO (small bowel obstruction): (2) S/P laparoscopic appendectomy: Plan 25-year-old male with PMH significant for recent appendectomy on 11/20/2025 who presented to the ED on 11/23/2025 with nausea and abdominal pain and found to have small bowel obstruction. Small bowel obstruction s/p appendectomy POD#4 laparoscopic appendectomy on 11/20/[address] Kendrick Operative report noted no perforation but mesenteric abscess-> discharged on Augmentin for 10 days CTAP shows mild to moderate SBO Labs remarkable for slight leukocytosis 15K-> 11K today Surgery consulted: recommending conservative management Pain is controlled Continue Zosyn while inpatient Advance diet to clears and continue to advance as tolerated Has been tolerating regular diet and bowel is moving The patient is moving around in the room and in the hallway without any difficulties and will be discharged home this afternoon DVT Prophylaxis: SCDs Code Status: FULL CODE PCP: None Disposition: dc to home when medically ready I spent a total of 35 minutes examining the patient, reviewing the chart and the medications and also investigations and planning of care. Total Time Total Time Spent Total Time Spent (In Minutes): 35 Minutes Discharge Plan Discharge Items Patient Disposition: Home - Self-Care Reason For Visit: SBO Discharge Diagnosis: Small bowel obstruction status post laparoscopic appendectomy Condition on Discharge: Good Activity: Resume your previous activity Non-emergency contact: Primary Care Provider Call non-emergency contact if: you have any medication questions and your symptoms worsen Follow-up/Referrals: PCP,NO [Primary Care Provider] - (Strongly advised to have a PCP and follow-up appointment) Diet: Regular Addtl Attending Provider Instructions: Please take precautions to avoid falls Try to take try multiple times less amount of food at 1 time and do avoid obstruction Try more fluid Try to take less of narcotic pain medications which can cause constipation and cause intestinal obstruction Keep appointments with the healthcare providers Pending Studies at Discharge: No Stand-Alone Forms: [employer], Smoking Cessation Medications and DC Order Prescriptions: Continued amoxicillin-pot clavulanate 875-125 mg Tablet 1 tab PO BID oxycodone 5 mg tablet 5 mg PO Q6H PRN (Reason: Pain) Discharge Orders: Discharge Order (Routine); Ordered 11/25/25 Ordered By: Joaquin Metz/Other Patient Handouts: Anatomy of the Digestive System Admission Data Admit Date/Time: 11/23/25 22:51 Attending Provider: Joaquin Pulido Admit Provider: Gucci Box Primary Care Provider: PCP,NO Other Providers: Gucci Box; Larry Paz Other Interventions: Discharge Summary Assessment (RN) Last Done: 11/25/25 11:04
--- NOTE | 2025-11-29 07:59 | Coding Query ---
CODING QUERY To promote full compliance with coding requirements relating to patient care, provider participation is requested in all cases of finishing supervisor uncertainty. Please assist us with the question(s) below: Coding Question(s): Pt admitted with intestinal obstruction,s/p lap appendectomy 11/20. Surgical Consult 11/23 mentioned postoperative ileus. Please check below the phrase that describes the intestinal obsttruction. Thank you. Sanjay Zelaya [facility] Physician's Response(s): Intestinal obstruction due to Postoperative Ileus Intestinal obstruction, NOT otherwise Specified X____ Other, please document: as documented. Principal Diagnosis: "that condition established after study, to be chiefly responsible for occasioning the admission of the patient to the hospital for care." Co-Existing Principal Diagnosis: "when two or more diagnoses equally meet the criteria for principal diagnosis as determined by the circumstances of admission, diagnostic work up, and/or therapy provided, and the Alphabetic Index, Tabular List, or another coding guideline does not provide sequencing direction, any one of the diagnoses may be sequenced first." "When the physician has documented what appears to be a current diagnosis in the body of the record, but has not included the diagnosis in the final diagnostic statement, the physician should be asked whether the diagnosis should be added." (Source Coding [facility] 2 QTR90. p3-4) AAYUSH
== END 2025-11-25 11:16 | disposition home or self-care (01) | DRG 394 ==
LOC: ED 18:26 → 3E 22:51